=== PATIENT | male | born 1940 | race Caucasian/White ===

== ENCOUNTER 2021-09-09 09:20 | Emergency (ER) | payer MEDICARE, SELFPAY ==
[2021-09-09 09:21] VITALS: BP 137/80; PULSE 94; RESP 16; TEMP 36.1; O2SAT 93; BMI 31.5
--- NOTE | 2021-09-09 10:11 | CT_ITS ---
STUDY: CT ABDOMEN AND PELVIS WITH CONTRAST REASON FOR EXAM: Male, 81 years old. LLQ abdominal pain -- IV PO Contrast RADIATION DOSAGE (If Supplied By Facility): CTDIvol = ( 18.82 ) mGy, DLP = ( 1450.95 ) mGycm TECHNIQUE: Transaxial images were obtained from the dome of the diaphragm to the symphysis pubis with oral contrast. Oral and amp; IV Gastrografin and amp; 100mL Isovue-300 was administered. Sagittal and coronal images were reconstructed. Individualized dose optimization techniques were used for this CT. COMPARISON: None. FINDINGS: The visualized lung bases are unremarkable. Coronary artery calcification. There is a 1.1 cm cyst in the anterior aspect of the dome of the liver. A smaller cyst is also seen in the midportion of the right lobe. There are surgical clips in the gallbladder fossa consistent with a prior cholecystectomy. Normal spleen. Normal pancreas. Normal bilateral adrenal glands. Normal right kidney. Normal left kidney. Normal visualized stomach. Normal small intestine. There is diverticulosis, with thickening of the colon wall, and pericolonic inflammation changes consistent with acute diverticulitis. There is evidence of a 2.4 cm x 2.6 cm fat-containing density in the region of the ileocecal valve suggestive of a fatty ileocecal valve. The appendix is visualized and appears normal. There is scattered atherosclerotic calcification of the abdominal aorta, without a demonstrated aneurysm. Normal inferior vena cava. Normal retroperitoneum. Normal urinary bladder. There is enlargement of the prostate gland. This measures 7.3 cm x 5.9 cm. This causes indentation of the bladder base. Normal abdominal wall. There are diffuse degenerative changes of the visualized lumbar spine. Prior right total hip replacement. CT/Abdomen/Pelvis WITH Contrast IMPRESSION: Mild degree of sigmoid diverticulitis without complication. Findings suggestive fatty ileocecal valve. Marked enlargement of the prostate with indentation of the bladder base. Electronically Signed: Torey Malhotra MD at 13:29 EDT ,
--- NOTE | 2021-09-09 10:12 | EDS_ITS ---
HPI HPI - GI History of Present Illness Chief Complaint: Abd Pain Narrative Narrative: 81-year-old male presenting with 3 days of abdominal pain. He describes it as left lower quadrant pain. He has associated nausea intermittently. He denies vomiting. He does not have any constipation. No fever or chills. No urinary complaints. [facility] Medical History (Updated 09/09/21 @ 10:34 by Reese Gómez) Dementia Diabetes Hypertension Home Medications allopurinol 100 mg PO DAILY PRN PRN 07/13/16 [History Last Taken Unknown] lisinopril-hydrochlorothiazide [Zestoretic] 1 ea PO DAILY 07/13/16 [History Last Taken 07/26/16 07:00] metformin 500 mg PO BID 07/13/16 [History Last Taken Unknown] acetaminophen 1,000 mg PO Q8 #60 tab 01/12/17 [Rx Last Taken Unknown] aspirin 325 mg PO BID #30 tab 01/12/17 [Rx Last Taken Unknown] famotidine [Heartburn Prevention] 20 mg PO DAILY #42 tab 01/12/17 [Rx Last Taken Unknown] oxycodone 5 - 10 mg PO Q6H PRN PRN #60 tab 01/12/17 [Rx Last Taken Unknown] amoxicillin-pot clavulanate 1 tab PO BID #24 tab 09/09/21 [Rx Last Taken Unknown] Allergy/AdvReac Type Severity Reaction Status Date / Time cheese Allergy Anaphylaxis Verified 09/09/21 09:21 egg Allergy Anaphylaxis Verified 09/09/21 09:21 Fish Containing Products Allergy Anaphylaxis Verified 09/09/21 09:21 Family History no significant family his Surgical History no surgical history Social History Smoking Status: Former smoker [facility] ED Constitutional Constitutional ED: Denies chills or fever(s) ENT ENT ED: Denies rhinorrhea or sore throat Cardiovascular Cardiovascular: Denies chest pain or palpitations Respiratory/Chest Respiratory/Chest: Denies cough or dyspnea Gastrointestinal Gastrointestinal: Reports abdominal pain; Denies nausea or vomiting Genitourinary Genitourinary ED: Denies dysuria or hematuria Musculoskeletal Musculoskeletal: Denies arthralgias, back pain or myalgias Integumentary Denies abscess, Abrasions or rash Neurologic Neurologic: Denies headache(s) or weakness Psychiatric Psychiatric: Denies anxiety or depression EXAM Physical Exam Const Vital Signs: 09/09/21 09:21 Temperature 96.9 F L Temperature Source Temporal Pulse Rate 94 Respiratory Rate 16 Blood Pressure 137/80 H Blood Pressure Mean 99 Pulse Ox 93 Oxygen Delivery Method Room Air Positive well nourished General Appearance ED: NAD; Negative for pallor HEENT Reports moist mucous membranes normocephalic and atraumatic Eyes EOMs intact bilaterally General Eye ED: Negative for pale conjunctiva or scleral icterus Resp normal respiratory effort and clear to auscultation bilaterally Cardio regular rate and regular rhythm GI non-distended Palpation: soft and tender LLQ Neuro Sensorium / Orientation: alert, oriented to person, oriented to place and oriented to time Psych mental status grossly normal and thought process normal Skin General Skin Exam: Negative for jaundice or pallor Lesions: no lesions Rashes: no rashes MDM MDM MDM Narrative Medical decision making narrative: Patient presenting with left lower quadrant pain. He does report picking out on peanuts and other nuts. He also states he eats wipers with sesame seeds. Clinically with left lower quadrant pain he is concerned for diverticulitis. CBC and BMP are unremarkable. Urinalysis negative. Obtain a CT of the abdomen pelvis with IV contrast which shows a mild sigmoid diverticulitis. Patient improved with morphine and Zofran. Patient co unseled on findings and will be given Augmentin with first dose in the ED. He is counseled on foods to avoid at length. Patient given return precautions. Impression: 1. Abdominal pain 2. Acute sigmoid diverticulitis Lab Data Attestation: I reviewed the patient's lab results. Labs: Laboratory Results - last 24 hr 09/09/21 09/09/21 09/09/21 10:25 10:25 10:50 WBC 10.9 RBC 4.82 Hgb 14.4 Hct 43.7 MCV 90.7 MCH 29.9 MCHC 33.0 RDW Std Deviation 43.1 RDW Coeff of Hossein 13.0 Plt Count MPV 10.9 Immature Gran % (Auto) 0.400 Neut % (Auto) 70.9 H Lymph % (Auto) 20.0 [place] % (Auto) 7.2 Eos % (Auto) 1.0 Baso % (Auto) 0.5 Absolute Neuts (auto) 7.7 Absolute Lymphs (auto) 2.17 Nucleated RBC % 0 Platelet Estimate ADEQUATE Sodium 137 Potassium 4.4 Chloride 106 Carbon Dioxide 23.0 Anion Gap 8 BUN 17 Creatinine 1.09 Estim Creat Clear Calc 53.02 Est GFR (MDRD) Af Amer 83 Est GFR (MDRD) Non-Af 69 BUN/Creatinine Ratio 15.6 Glucose 139 H Calcium 9.0 Urine Color Yellow Urine Clarity Clear Urine pH 6.0 Ur Specific [place] 1.015 Urine Protein Negative Urine Glucose (UA) Normal Urine Ketones Negative Urine Occult Blood Negative Urine Nitrite Negative Urine Bilirubin Negative Urine Urobilinogen Normal Ur Leukocyte Esterase Negative Urine RBC 0 SEEN Urine WBC 0 SEEN Ur Squamous Epith Cells 0-5 SEEN Urine Bacteria 0 SEEN Urine Mucus 0 SEEN Radiography Diagnostic Testing: Clinical Impression(s) from Imaging Studies Abdomen/Pelvis CT 09/09/21 10:11 IMPRESSION: Mild degree of sigmoid diverticulitis without complication. Findings suggestive fatty ileocecal valve. Marked enlargement of the prostate with indentation of the bladder base. Electronically Signed: Torey Malhotra MD at 13:29 EDT , Discharge Plan Triage Chief Complaint: Abd Pain ED Provider: Miguel Ayon Dx/Rx/DC Orders Instructions: ED Diverticulitis Prescriptions: New amoxicillin-pot clavulanate 875-125 mg tablet 1 tab PO BID Qty: 24 RF: 0 No Action metformin 500 MG tablet 500 mg PO BID RF: 0 lisinopril-hydrochlorothiazide [Zestoretic] 1 EACH tablet 1 ea PO DAILY RF: 0 allopurinol 100 MG tablet 100 mg PO DAILY PRN PRN (Reason: GOUT) RF: 0 aspirin 325 MG tablet 325 mg PO BID Qty: 30 RF: 0 acetaminophen 500 MG tablet 1,000 mg PO Q8 Qty: 60 RF: 0 oxycodone 5 MG tablet 5 - 10 mg PO Q6H PRN PRN (Reason: Mod-Severe Pain (4-1010)) Qty: 60 RF: 0 famotidine [Heartburn Prevention] 20 MG tablet 20 mg PO DAILY Qty: 42 RF: 0 Primary Care Provider: Shavon Morejon Referrals: Shavon Morejon DO [Primary Care Provider] - Disposition Disposition: Home, Self Care
[2021-09-09 10:40] LABS: Absolute Lymphocyte Count 2.17 X10^3/uL (0.83-4.51); Absolute Neutrophil Count 7.7 X10^3/uL (2.0-7.7); Basophil# 0.05 X10^3/uL; Basophil% 0.5 % (0-1); Eosinophil# 0.11 X10^3/uL; Hematocrit 43.7 % (40-54); Hemoglobin 14.4 g/dL (13.0-16.5); Lymphocyte # 2.17 X10^3/ul (0.83-4.51); Mean Corpuscular Hgb 29.9 pg (27.0-32.0); Mean Corpuscular Volume 90.7 fL (80-94); Mean Platelet Vol. 10.9 fl (6.2-12.0); Monocyte# 0.78 X10^3/uL; Monocyte% 7.2 % (0-10); NRBC Flagged by Analyzer 0 % (0-5); Neutrophil # 7.71 X10^3/uL (2.7-7.7); Neutrophil % 70.9 % (47-70); POSITIVE COUNT YES; RBC Distribution Width SD 43.1 fl (35.1-43.9); Red Blood Count 4.82 M/mm3 (4.6-6.2); White Blood Count 10.9 K/mm3 (4.4-11.0)
[2021-09-09] MEDS: Ondansetron 4 MG/2 ML Vial IV (10:49)
[2021-09-09 10:52] LABS: Anion Gap 8 (5-15); BUN 17 mg/dL (7-18); BUN/Creat Ratio 15.6 RATIO (10-20); Chloride 106 mmol/L (98-107); Creatinine, Serum 1.09 mg/dL (0.70-1.30); EST Glomerular Filtration Rate 69 mL/min (>60); Est Glom Filt Rate - Afr Amer 83 mL/min (>60); Estimated Creatinine Clearance 53.02 ml/min; Glucose 139 mg/dL (74-106); Potassium 4.4 mmol/L (3.5-5.1); Sodium Level 137 mmol/L (136-145)
[2021-09-09 10:56] LABS: Bacteria 0 SEEN /hpf (None Seen); Mucous, Urine 0 SEEN /hpf (<or=2+); Red Blood Cells-Urine 0 SEEN /hpf (0-5); White Blood Cells 0 SEEN /hpf (0-5)
[2021-09-09 10:58] LABS: Color, Urine Yellow (Yellow); Glucose, Dipstick Normal (Normal); Ketone-Dipstick Negative (Negative); Leukocyte Esterase-Dipstick Negative /ul (Negative); Nitrite-Dipstick Negative (Negative); Occult Blood-Urine Negative /ul (Negative); Protein-Dipstick Negative (Negative); Specific Gravity, Urine 1.015 (1.002-1.030); Urine Bilirubin Dipstick Negative (Negative); Urine Clarity Clear (Clear); Urine Urobilinogen Normal (Normal)
[2021-09-09 11:09] LABS: Squamous Epithelial Cells - UA 0-5 SEEN /hpf (0-5)
[2021-09-09 11:12] LABS: Differential Indicated SCAN CRITERIA MET; Platelet Estimate ADEQUATE (ADEQ)
[2021-09-09] MEDS: Amox/Clavulanate 875 MG Tablet PO (13:52)
[2021-09-09 13:55] VITALS: RESP 18
== END 2021-09-09 13:57 | disposition home or self-care (01) ==
PROVIDERS: Emergency Provider Student in an Organized Health Care Education/Training Program; PCP Family Medicine; Visit Provider Student in an Organized Health Care Education/Training Program
DX: K57.32 Diverticulitis of large intestine without perforation or abscess without bleeding (principal); R10.32 Left lower quadrant pain; Z87.891 Personal history of nicotine dependence
CPT/HCPCS: 74177; 80048; 81001; 85025; 96374; 99283; A4216; J2405

== ENCOUNTER 2021-10-10 15:09 | Inpatient (IN) | payer MEDICARE, SELFPAY ==
[2021-10-10] VITALS (9 sets, daily range): BP systolic 141–175; BP diastolic 73–97; PULSE 80–93; RESP 14–21; TEMP 36.3–37.1; O2SAT 95–99; BMI 31.6; BMI 31.8
--- NOTE | 2021-10-10 15:30 | EKG12_ITS ---
Test Reason : PAIN/OTHER Blood Pressure : / mmHG Vent. Rate : 092 BPM Atrial Rate : 092 BPM P-R Int : 176 ms QRS Dur : 078 ms QT Int : 358 ms P-R-T Axes : 036 017 043 degrees QTc Int : 442 ms Normal sinus rhythm Normal ECG Confirmed by SHAY GOLDSMITH, GENNARO ([id number]), advertising editor FABY MEJIA ([id number]) on 10/12/2021 1:26:59 PM Referred By: NOEL Confirmed By:GENNARO DAY MD
--- NOTE | 2021-10-10 15:30 | CT_ITS ---
STUDY: CTA HEAD AND NECK WITH CONTRAST REASON FOR EXAM: Male, 81 years old. weakness left side, dementia, htn, dvt''s RADIATION DOSAGE (If Supplied By Facility): CTDIvol = ( 27.06 ) mGy, DLP = ( 1595.18 ) mGycm TECHNIQUE: CT angiography was performed with a multi-detector CT scanner. Data acquisition was obtained from the skull base through the vertex following intravenous administration of IV 100mL Isovue-370. MIP images were reconstructed from the axial data set. Post-processing of the angiographic images was performed, with multiplanar reformation and 3D reconstruction. Individualized dose optimization techniques were used for this CT. COMPARISON: No relevant priors. FINDINGS: There is no arterial occlusion, hemodynamically significant stenosis, aneurysm, or dissection in the head and neck. 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 Moderate atherosclerosis of the cavernous and supraclinoid segments of the bilateral intracranial ICAs is seen. There are small to moderate size mixed plaques at the bilateral carotid bulbs causing less than 40% luminal stenosis on both sides. No definite thrombosis is noted in the major dural sinuses and the neck pains. The bilateral globes are intact. Paranasal sinuses and mastoid air cells are clear. The bilateral parotid and submandibular glands are unremarkable. The airway is patent. The epiglottis is of normal contour and size. Ill-defined nodules are seen throughout the thyroid gland measuring up to 1.2 cm diameter. Upper lungs are clear. Multilevel cervicothoracic spondylosis is noted. CT/CTA Head AND Neck W/ Contrast IMPRESSION: No arterial occlusion or hemodynamically significant stenosis in the head and neck. Small thyroid nodules, amenable to further evaluation by ultrasound. Electronically Signed: Irving Garcia MD at 17:49 EDT ,
--- NOTE | 2021-10-10 15:33 | EDS_ITS ---
HPI History of Present Illness Chief Complaint: Other, Pain/Inj Detail of Chief Complaint: Left arm and leg pain Informant: patient Onset/Context/Timing Onset: Today Narrative Narrative: Patient reports waking this morning around 5:30 with difficulty moving his left hand and left leg along with pain. He states he was able to mow the yard yesterday without difficulty. He denies back pain. [facility] Medical History Dementia Diabetes Hypertension Home Medications allopurinol 100 mg PO DAILY PRN PRN 07/13/16 [History Last Taken Unknown] lisinopril-hydrochlorothiazide [Zestoretic] 1 ea PO DAILY 07/13/16 [History Last Taken 07/26/16 07:00] metformin 500 mg PO BID 07/13/16 [History Last Taken Unknown] acetaminophen 1,000 mg PO Q8 #60 tab 01/12/17 [Rx Last Taken Unknown] aspirin 325 mg PO BID #30 tab 01/12/17 [Rx Last Taken Unknown] famotidine [Heartburn Prevention] 20 mg PO DAILY #42 tab 01/12/17 [Rx Last Taken Unknown] oxycodone 5 - 10 mg PO Q6H PRN PRN #60 tab 01/12/17 [Rx Last Taken Unknown] amoxicillin-pot clavulanate 1 tab PO BID #24 tab 09/09/21 [Rx Last Taken Unknown] Allergy/AdvReac Type Severity Reaction Status Date / Time cheese Allergy Anaphylaxis Verified 10/10/21 15:14 egg Allergy Anaphylaxis Verified 10/10/21 15:14 Fish Containing Products Allergy Anaphylaxis Verified 10/10/21 15:14 Social History Smoking Status: Former smoker ROS ROS ED Constitutional Constitutional ED: Denies chills or fever(s) Eyes Eyes: Denies change in vision ENT ENT ED: Denies sore throat Cardiovascular Cardiovascular: Denies chest pain Respiratory/Chest Respiratory/Chest: Denies cough or dyspnea Gastrointestinal Gastrointestinal: Denies abdominal pain, diarrhea, nausea or vomiting Genitourinary Genitourinary ED: Denies dysuria Musculoskeletal Musculoskeletal: Denies back pain Integumentary Denies rash Neurologic Neurologic: Reports weakness; Denies headache(s) or paresthesias Psychiatric Psychiatric: Denies anxiety or depression Endocrine Endocrinology: Denies polydipsia or polyuria Allergic/Immunologic Allergic/Immunologic ED: Denies urticaria EXAM Physical Exam Const Vital Signs: 10/10/21 15:11 10/10/21 15:55 10/10/21 17:58 Temperature 97.3 F L Temperature Source Temporal Pulse Rate 93 85 Respiratory Rate 14 16 Respiratory Effort Normal Non-Labored Respiratory Pattern Normal Blood Pressure 158/75 H 153/80 H Blood Pressure Mean 102 104 Pulse Ox 99 Oxygen Delivery Method Room Air Positive well nourished and well developed General Appearance ED: well developed HEENT Reports moist mucous membranes Negative for trauma Eyes PERRL and EOMs intact bilaterally Neck supple Chest Wall inspection of chest normal and palpation of chest normal Resp normal respiratory effort and clear to auscultation bilaterally Cardio regular rate and regular rhythm GI non-tender Palpation: soft Extremity normal to inspection Neuro oriented x3 Neuro Narrative: Patient has no focal neurodeficits at this time. He is able to hold both arms up against gravity without drift. He is able to hold his left leg up off the floor to the count of 5. [id number] testing on the left is slightly slower than on the right. Sensation to light touch intact throughout. Sensorium / Orientation: alert Psych mental status grossly normal Skin no rashes or lesions noted MDM MDM MDM Narrative Medical decision making narrative: Lab work, EKG, urinalysis obtained. Patient sent for CTA of the head and neck. Chest x-ray ordered. Lab Data Attestation: I reviewed the patient's lab results. Labs: Laboratory Results - last 24 hr 10/10/21 10/10/21 10/10/21 15:45 15:45 15:45 WBC 11.5 H RBC 5.15 Hgb 15.2 Hct 47.2 MCV 91.7 MCH 29.5 MCHC 32.2 RDW Std Deviation 44.7 H RDW Coeff of Hossein 13.2 Plt Count 229 MPV 9.4 Immature Gran % (Auto) 0.300 Neut % (Auto) 73.3 H Lymph % (Auto) 19.9 [place] % (Auto) 5.5 Eos % (Auto) 0.7 Baso % (Auto) 0.3 Absolute Neuts (auto) 8.4 H Absolute Lymphs (auto) 2.29 Nucleated RBC % 0 PT 13.3 INR 1.0 APTT 30.9 Sodium 138 Potassium 4.0 Chloride 105 Carbon Dioxide 27.0 Anion Gap 6 BUN 12 Creatinine 1.10 Estim Creat Clear Calc 52.54 Est GFR (MDRD) Af Amer 82 Est GFR (MDRD) Non-Af 68 BUN/Creatinine Ratio 10.9 Glucose 164 H Calcium 9.5 Troponin I High Sens 4 Urine Color Urine Clarity Urine pH Ur Specific [place] Urine Protein Urine Glucose (UA) Urine Ketones Urine Occult Blood Urine Nitrite Urine Bilirubin Urine Urobilinogen Ur Leukocyte Esterase Urine RBC Urine WBC Ur Squamous Epith Cells Urine Bacteria Urine Mucus 10/10/21 16:05 WBC RBC Hgb Hct MCV MCH MCHC RDW Std Deviation RDW Coeff of Hossein Plt Count MPV Immature Gran % (Auto) Neut % (Auto) Lymph % (Auto) [place] % (Auto) Eos % (Auto) Baso % (Auto) Absolute Neuts (auto) Absolute Lymphs (auto) Nucleated RBC % PT INR APTT Sodium Potassium Chloride Carbon Dioxide Anion Gap BUN Creatinine Estim Creat Clear Calc Est GFR (MDRD) Af Amer Est GFR (MDRD) Non-Af BUN/Creatinine Ratio Glucose Calcium Troponin I High Sens Urine Color Yellow Urine Clarity Clear Urine pH 5.0 Ur Specific [place] 1.025 Urine Protein Negative Urine Glucose (UA) Normal Urine Ketones Negative Urine Occult Blood 10 H Urine Nitrite Negative Urine Bilirubin Negative Urine Urobilinogen Normal Ur Leukocyte Esterase Negative Urine RBC 0 SEEN Urine WBC 0 SEEN Ur Squamous Epith Cells 0 SEEN Urine Bacteria 0 SEEN Urine Mucus 0 SEEN Radiography Chest X-Ray - ED: 1 View, Read by ED Physician and Chronic Changes Diagnostic Testing: Clinical Impression(s) from Imaging Studies Head/Neck CTA 10/10/21 15:30 IMPRESSION: No arterial occlusion or hemodynamically significant stenosis in the head and neck. Small thyroid nodules, amenable to further evaluation by ultrasound. Electronically Signed: Irving Garcia MD at 17:49 EDT , Chest X-Ray 10/10/21 16:20 IMPRESSION: No acute cardiopulmonary process. Electronically Signed: Irving Garcia MD at 17:25 EDT , EKG Initial EKG: Attestation: I personally reviewed and interpreted this EKG as follows: Interpretation: Sinus Rhythm (Sinus at 92 with no acute ischemia.) Treatment and Re-Evaluation Narrative: On repeat evaluation patient resting comfortably. He still feels that his left side is weak. now states that he fell twice this week, 1 of those episodes was this morning. She states he has been complaining of left- sided weakness that seems to be worse when he first wakes up in the morning. He is having more trouble getting around the house. I advised the best course of action will be to observe him overnight and obtain a MRI in the morning to c ompletely rule out stroke. I will speak with the hospitalist. Discharge Plan Triage Chief Complaint: Other, Pain/Inj ED Provider: Alanis Borjas Dx/Rx/DC Orders Clinical Impression: Weakness Prescriptions: No Action metformin 500 MG tablet 500 mg PO BID RF: 0 lisinopril-hydrochlorothiazide [Zestoretic] 1 EACH tablet 1 ea PO DAILY RF: 0 allopurinol 100 MG tablet 100 mg PO DAILY PRN PRN (Reason: GOUT) RF: 0 aspirin 325 MG tablet 325 mg PO BID Qty: 30 RF: 0 acetaminophen 500 MG tablet 1,000 mg PO Q8 Qty: 60 RF: 0 oxycodone 5 MG tablet 5 - 10 mg PO Q6H PRN PRN (Reason: Mod-Severe Pain (4-10/10)) Qty: 60 RF: 0 famotidine [Heartburn Prevention] 20 MG tablet 20 mg PO DAILY Qty: 42 RF: 0 amoxicillin-pot clavulanate 875-125 mg tablet 1 tab PO BID Qty: 24 RF: 0 Primary Care Provider: Shavon Morejon Referrals: Shavon Morejon DO [Primary Care Provider] - Disposition Disposition: Acute Care Hospital [facility]
[2021-10-10 15:50] LABS: Absolute Lymphocyte Count 2.29 X10^3/uL (0.83-4.51); Absolute Neutrophil Count 8.4 X10^3/uL (2.0-7.7); Basophil# 0.04 X10^3/uL; Basophil% 0.3 % (0-1); Eosinophil# 0.08 X10^3/uL; Eosinophils% 0.7 % (0-5); Hematocrit 47.2 % (40-54); Hemoglobin 15.2 g/dL (13.0-16.5); Lymphocyte # 2.29 X10^3/ul (0.83-4.51); Lymphocyte % 19.9 % (19-41); Mean Corp Hgb Conc 32.2 g/dL (32-36); Mean Corpuscular Hgb 29.5 pg (27.0-32.0); Mean Corpuscular Volume 91.7 fL (80-94); Mean Platelet Vol. 9.4 fl (6.2-12.0); Monocyte# 0.63 X10^3/uL; Monocyte% 5.5 % (0-10); NRBC Flagged by Analyzer 0 % (0-5); Neutrophil # 8.42 X10^3/uL (2.7-7.7); Neutrophil % 73.3 % (47-70); Platelet Count 229 K/mm3 (150-450); RBC Distribution Width CV 13.2 % (11.6-14.6); RBC Distribution Width SD 44.7 fl (35.1-43.9); Red Blood Count 5.15 M/mm3 (4.6-6.2); White Blood Count 11.5 K/mm3 (4.4-11.0)
[2021-10-10 16:02] LABS: Partial Thromboplast Time 30.9 Seconds (24.1-36.2); Prothrombin Time (Protime)PT. 13.3 SECONDS (11.7-14.9)
[2021-10-10 16:12] LABS: Anion Gap 6 (5-15); BUN 12 mg/dL (7-18); BUN/Creat Ratio 10.9 RATIO (10-20); Calcium,Total 9.5 mg/dL (8.5-10.1); Chloride 105 mmol/L (98-107); EST Glomerular Filtration Rate 68 mL/min (>60); Est Glom Filt Rate - Afr Amer 82 mL/min (>60); Estimated Creatinine Clearance 52.54 ml/min; Glucose 164 mg/dL (74-106); Sodium Level 138 mmol/L (136-145); Troponin-I HS 4 pg/mL (3.0-78.0)
[2021-10-10 16:14] LABS: Bacteria 0 SEEN /hpf (None Seen); Mucous, Urine 0 SEEN /hpf (<or=2+); Red Blood Cells-Urine 0 SEEN /hpf (0-5); Squamous Epithelial Cells - UA 0 SEEN /hpf (0-5); White Blood Cells 0 SEEN /hpf (0-5)
--- NOTE | 2021-10-10 16:20 | RAD_ITS ---
STUDY: X-RAY CHEST REASON FOR EXAM: Male, 81 years old. sob TECHNIQUE: 1 view COMPARISON: None. FINDINGS: Cardiomediastinal silhouette is unremarkable. Costophrenic angles are sharp. Lungs are clear. The trachea is midline. There is no pneumothorax. The bones are grossly intact. RAD/Chest 1 View (Portable) IMPRESSION: No acute cardiopulmonary process. Electronically Signed: Irving Garcia MD at 17:25 EDT ,
[2021-10-10 16:25] LABS: Color, Urine Yellow (Yellow); Glucose, Dipstick Normal (Normal); Ketone-Dipstick Negative (Negative); Leukocyte Esterase-Dipstick Negative /ul (Negative); Nitrite-Dipstick Negative (Negative); Occult Blood-Urine 10 /ul (Negative); Protein-Dipstick Negative (Negative); Specific Gravity, Urine 1.025 (1.002-1.030); Urine Bilirubin Dipstick Negative (Negative); Urine Clarity Clear (Clear); Urine Urobilinogen Normal (Normal)
--- NOTE | 2021-10-10 19:03 | HP.PCM.HOS_ITS ---
HPI - General General Date of Admission: 10/10/21 Date of Service: 10/10/21 Chief Complaint: L sided weakness HPI Narrative The patient is an 81 y/o M w/ PMHx: Dementia unclear type with unclear behavioral disturbance history, HTN, Diabetes mellitus type II, Obesity who presents to the [facility] ED on 10/10/21 with history of awakening this morning approximately 5:30 AM with some difficulty specifically getting out of bed and noted that he felt very weak and had to attempt even walk to get up in addition to reported difficulty moving his left hand and left leg with associated pain noting that the day prior he had no issue and was able to mow the yard and given it was not resolving prompted ED evaluation. He also noted that after he was finally able to get out of bed his had recently walks the floors and he slipped and was unable to get off the floor requiring him to scoot to the edge of the steps and have his pull them up. He also notes that he had about a week of right lower extremity mild discomfort and swelling compared to the left. 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 Work-up in the ED included T97.3, heart rate 93, BP 158/75, respiratory rate 14, 99% on room air, CBC with WC 11.5, hemoglobin 15.2, platelet 229 with left shift, unremarkable coags, BMP with glucose 164 otherwise unremarkable, troponin 4, urinalysis with evidence of dehydration with elevated specific gravity 1.025 otherwise no obvious evidence of UTI, chest x-ray with no acute cardiopulmonary findings, CT of the head and CT of the head and neck with no arterial occlusion or hemodynamically significant stenosis in the head and neck with small to moderate size mixed plaques at bilateral carotid bulbs causing less than 40% luminal stenosis on both sides in addition to ill-defined nodules seen throughout the thyroid gland measuring up to 1.2 cm in diameter. [facility] Medical History (Updated 10/10/21 @ 20:[address] Carina Doe MD) Dementia Diabetes mellitus, type 2 Former tobacco use GERD (gastroesophageal reflux disease) Gout Hypertension Home Medications lisinopril-hydrochlorothiazide [Zestoretic] 1 ea PO BID 07/13/16 [History Last Taken 07/26/16 07:00] metformin 1,000 mg PO BID 07/13/16 [History Last Taken Unknown] metformin 500 mg PO QHS 10/10/21 [History Last Taken Unknown] Allergy/AdvReac Type Severity Reaction Status Date / Time cheese Allergy Anaphylaxis Verified 10/10/21 15:14 egg Allergy Anaphylaxis Verified 10/10/21 15:14 Fish Containing Products Allergy Anaphylaxis Verified 10/10/21 15:14 Family History other other (Patient's mother during his and his father at age 89 with no health histories including heart disease, diabetes, cancer.) Surgical History (Updated 10/10/21 @ 20:[address] 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 Carina Doe MD) household members: spouse housing: house Smoking Status: Former smoker how long ago did patient quit smoking: Quit remotely in the 1960s, smoked a pipe. alcohol intake: never substance use type: does not use ROS ROS Narrative Admission Review of Systems: CONSTITUTIONAL: No weight loss, fever, chills, + weakness or fatigue. HEENT: Eyes: No visual loss, blurred vision, double vision or yellow sclerae. Ears, Nose, Throat: No hearing loss, sneezing, congestion, runny nose or sore throat. SKIN: + Abrasions. CARDIOVASCULAR: + RLE edema. No chest pain, chest pressure or chest discomfort, palpitations, orthopnea, syncopal events. RESPIRATORY: No shortness of breath, cough or sputum, wheezing, hemoptysis. GASTROINTESTINAL: No anorexia, nausea, vomiting or diarrhea, abdominal pain, melena, BRBPR. GENITOURINARY: No dysuria, frequency, urgency or retention. NEUROLOGICAL: + L side weakness, No headache, dizziness, syncope, paralysis, ataxia, numbness or tingling in the extremities, no loss of bowel or bladder, seizure. MUSCULOSKELETAL: + muscle, back pain, joint pain or stiffness. HEMATOLOGIC: No anemia, bleeding or bruising. LYMPHATICS: No enlarged nodes. No history of splenectomy. PSYCHIATRIC: No history of depression or anxiety. ENDOCRINOLOGIC: No reports of sweating, cold or heat intolerance. No polyuria or polydipsia. ALLERGIES: No history of asthma, hives, eczema or rhinitis. Vital Signs Vital Signs Vital Signs: 10/10/21 15:11 10/10/21 15:55 10/10/21 17:58 Temperature 97.3 F L Temperature Source Temporal Pulse Rate 93 85 Respiratory Rate 14 16 Respiratory Effort Normal Non-Labored Respiratory Pattern Normal Blood Pressure 158/75 H 153/80 H Blood Pressure Mean 102 104 Pulse Ox 99 Oxygen Delivery Method Room Air Weight Weight: 220 lb 7.396 oz Body Mass Index (BMI) 31.6 Physical Exam Narrative Physical Examination: General: Awake, alert, oriented x 3 including to self, place and recent events, does have reported underlying dementia, remains cooperative, seated upright in the ED bed in no apparent distress, does report RLE discomfort/swelling and lumbar back pain with fall today also. Skin: Normal color, normal turgor, no icterus, no cyanosis except occasional staged ecchymoses and occasional abrasion. HEENT: AT/NC, EOMI, PERRLA, MMM, no carotid bruits or JVD noted. Lungs: Diminished, greater bases, appropriate effort, no rales, ronchi or wheezing. Heart: Currently regular rate and rhythm; no gallop, rub audible. Abdomen: Soft, obese, NTTP, ND, distant normal BS, no obvious evidence of HSM. Extremities: No cyanosis, no clubbing, right lower extremity with mild pedal to distal villanueva 1-2+ edema, increased compared to the left lower extremity, uncomfortable with palpation. Neurological: Patient awake, alert, oriented as noted, cognitive function appears intact but patient does of note have underlying dementia with unclear behavioral disturbance history; pupils equally reactive to light and accommodation, cranial nerves II-XII grossly normal, moving all 4 extremities, no focal deficits, [id number] and djve-bw-[id number] mildly slow but appropriate, equivocal Babinski, strength moderately global decreased but could certainly be associated with recent fall and age. Psychiatric: Affect appears normal, no acute evidence of depressive or anxiety feelings. Results Lab / Micro Data Result Diagrams: 10/10/21 15:45 10/10/21 15:45 Labs: Laboratory Results - last 24 hr 10/10/21 15:45: WBC 11.5 H, RBC 5.15, Hgb 15.2, Hct 47.2, MCV 91.7, MCH 29.5, MCHC 32.2, RDW Std Deviation 44.7 H, RDW Coeff of Hossein 13.2, Plt Count 229, MPV 9.4, Immature Gran % (Auto) 0.300, Neut % (Auto) 73.3 H, Lymph % (Auto) 19.9, [place] % (Auto) 5.5, Eos % (Auto) 0.7, Baso % (Auto) 0.3, Absolute Neuts (auto) 8.4 H, Absolute Lymphs (auto) 2.29, Nucleated RBC % 0 10/10/21 15:45: PT 13.3, INR 1.0, APTT 30.9 10/10/21 15:45: Sodium 138, Potassium 4.0, Chloride 105, Carbon Dioxide 27.0, Anion Gap 6, BUN 12, Creatinine 1.10, Estim Creat Clear Calc 52.54, Est GFR (MDRD) Af Amer 82, Est GFR (MDRD) Non-Af 68, BUN/Creatinine Ratio 10.9, Glucose 164 H, Calcium 9.5, Troponin I High Sens 4 10/10/21 16:05: Urine Color Yellow, Urine Clarity Clear, Urine pH 5.0, Ur Speci fic Perley 1.025, Urine Protein Negative, Urine Glucose (UA) Normal, Urine Ketones Negative, Urine Occult Blood 10 H, Urine Nitrite Negative, Urine Bilirubin Negative, Urine Urobilinogen Normal, Ur Leukocyte Esterase Negative, Urine RBC 0 SEEN, Urine WBC 0 SEEN, Ur Squamous Epith Cells 0 SEEN, Urine Bacteria 0 SEEN, Urine Mucus 0 SEEN Radiology Impression Head/Neck CTA 10/10/21 15:30 IMPRESSION: No arterial occlusion or hemodynamically significant stenosis in the head and neck. Small thyroid nodules, amenable to further evaluation by ultrasound. Electronically Signed: Irving Garcia MD at 17:49 EDT Reading Location ID and State: [facility] / [place] Tel , Service support , Chest X-Ray 10/10/21 16:20 IMPRESSION: No acute cardiopulmonary process. Electronically Signed: Irving Garcia MD at 17:25 EDT Reading Location ID and State: [facility] / [place] Tel , Service support , Assessment & Plan Assessment/Plan (1) TIA (transient ischemic attack): PLAN: The patient is an 81 y/o M w/ PMHx: Dementia unclear type with unclear behavioral disturbance history, HTN, Diabetes mellitus type II, Obesity who presents to the [facility] ED on 10/10/21 with history of awakening this morning approximately 5:30 AM with some difficulty moving his left hand and left leg with associated pain noting that the day prior he had no issue and was able to mow the yard and given it was not resolving prompted ED evaluation. #1. Left-sided hemiplegia concerning for CVA: Will admit to PCU, will obtain MRI Brain, ECHO, PT/OT/Speech/Nutrition evaluation per protocol. Will consult Neurology for evaluation once further evaluation and imaging obtained of. Will allow permissive HTN, de-escalate aspirin 325 mg to asa 81 mg and add Plavix 75 mg, add moderate dose statin given age w/ AM FLP, fall precautions. Magnesium, TSH, free T4, FLP, hemoglobin A1c requested. Will discuss potential for taking plavix, statin given allergy history and if patient has attempted these agents or notes he would issue will d/c. #2. Right lower extremity discomfort, edema: Duplex ultrasound will be ordered. #3. Recent mechanical fall with lumbar back pain: We will obtain plain film of the lumbar spine, therapies orders as noted above, fall precautions. #4. Incidental thyroid nodules: Ill-defined nodules seen throughout the thyroid gland measuring up to 1.2 cm, thyroid ultrasound, TSH and free T4 requested. #5. Hypertension: We will continue permissive hypertension pending further work-up as noted above #1. As needed agents per stroke protocol #6. Hyperlipidemia: We will place on moderate dose statin given age, FLP in a.m. #7. Diabetes mellitus type II: Hold oral home regimen, hemoglobin A1c requested, ADA diet, accu checks w/ ISS. #8. Dementia unclear type with unclear behavioral disturbance history: Complicates presentation, no new medications, maintain on fall and aspiration cautions, therapies consulted as well as case management as noted. #9. GERD: We will maintain on famotidine. #10. Gout: We will continue patient on allopurinol regimen. #11. DVT prophylaxis: SCDs, Lovenox. #12. CODE status: Patient JUSTEN is his and living will is currently in. Discussed CODE status at length including difference between FULL code, DNR-CCA and DNR-CC status. Following discussions about the differences in these status, requested DNR-CCA, no intubation status. Advanced Care Planning Face to Face Time: 16 minutes. Charges/Coding Visit Charges OBSV E&M: 12521 Initial observation care L3 Procedures Hospitalists Procedures: 97694 Advncd Care Plan 30 Min
--- NOTE | 2021-10-10 20:11 | VDLE_ITS ---
Reason For Study: pain RIGHT GSV is normal. CFV is compressible, spontaneous, phasic, competent and demonstrates normal augmentation. FV is compressible, spontaneous, phasic, competent and demonstrates normal augmentation. POP V is compressible, spontaneous, phasic, competent and demonstrates normal augmentation. T/P Trunk is compressible. PTV is compressible. RT PerV is compressible. Procedure This is a venous duplex using B-mode, color flow and spectral Doppler. Exam performed portable in patient room. The exam was abbreviated due to the COVID 19 protocol. The exam was diagnostic. A preliminary report was called and/or faxed to the pt's RN. VL/Venous Duplex US, Unilateral Interpretation Summary There is no evidence of right lower extremity deep vein thrombosis. Right great saphenous vein appears patent and compressible segmentally. Abbreviated COVID-19 protocol util ized Ordering Physician: Carina Doe Performed By: Jose Rojas RVT
--- NOTE | 2021-10-10 20:26 | MRI_ITS ---
We are attempting to reach an attending provider to discuss findings. An addendum with communication details will be sent when the communication is complete. STUDY: MRI BRAIN WITHOUT CONTRAST REASON FOR EXAM: Male, 81 years old. CVA TECHNIQUE: Standardized multiplanar fat and water weighted pulse sequences were obtained. COMPARISON: None. FINDINGS: There is moderate cerebral atrophy with widening of the extra-axial spaces and ventricular dilatation. There are a limited number of small white matter hyperintensities, distributed throughout the deep white matter tracts of the cerebral hemispheres, consistent with mild chronic white matter ischemic changes. 1 cm hyperintensity of the right side of the anival demonstrates faint restricted diffusion consistent with a subacute infarct. Normal T2* images of the brain without demonstrated susceptibility artifact. There is no demonstrated hemosiderin stain. Normal bilateral basal ganglia. Normal thalami. There is no extra-axial fluid accumulation. Normal flow voids within the major intracranial circulation suggesting patency by spin echo criteria. Normal sella turcica, pituitary gland, infundibular stalk, optic chiasm and hypothalamus. Normal tectal plate and pineal gland. Normal midbrain, anival and medulla. Normal cerebellum. Normal basal cisterns. Normal bilateral temporal bones. Normal bilateral internal auditory canals. No demonstrated orbital abnormality, within the constraints of a routine brain study. Normal visualized paranasal sinuses. Normal calvarium and skull base. Normal visualized soft tissue structures. Normal visualized upper cervical spine. 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 Electronically Signed: Khoa Tejeda MD at 13:26 EDT ,
--- NOTE | 2021-10-10 20:28 | ECHOCS_ITS ---
Reason For Study: TIA/CVA Procedure This was a 2D Doppler, Color Flow transthoracic echocardiogram. The study was technically difficult. Contrast injection was performed. Bubble study performed. Exam performed portable in patient room. Left Ventricle Normal LV size. Mild concentric left ventricular hypertrophy. Left ventricular systolic function is normal. The estimated ejection fraction is 60 %. Stage 1 diastolic dysfunction. No regional wall motion abnormalities noted. Right Ventricle Normal RV size. Normal systolic function. Atria Normal left atrium. Normal right atrium. Bubble contrast study negative for right to left interatrial shunt. Mitral Valve Normal mitral valve. Tricuspid Valve Normal tricuspid valve. Aortic Valve Trisinus/trileaflet aortic valve. Pulmonic Valve Normal pulmonic valve. Great Vessels Normal aortic root. The pulmonary artery is normal size. Normal inferior vena cava. Pericardium/Pleural No pericardial effusion. Medication Diluted definity 3ml given slow IV push to enhance endocardial definition. Performed a rapid injection of agitated mix of 9 cc saline and 1cc air to assess for atrial septal defect. MMode/2D Measurements & Calculations LVIDd: 3.4 cm IVSd: 1.3 cm LA dimension: 3.4 cm LVIDs: 1.9 cm LVPWd: 1.5 cm FS: 45.3 % LAV(MOD-sp4): 61.4 ml LA A4 area: 21.7 cm2 RA A4 area: 15.4 cm2 Time Measurements MV dec time: 0.19 sec Doppler Measurements & Calculations MV E max paul: 62.5 cm/sec Lat Peak E' Paul: 7.6 cm/sec Med Peak E' Paul: 7.0 cm/sec MV A max paul: 104.9 cm/sec E/E' lat: 8.2 E/E' med: 8.9 MV E/A: 0.60 MV V2 max: 110.2 cm/sec MV P1/2t max paul: 69.5 cm/sec Ao V2 max: 104.0 cm/sec MV max P.9 mmHg MV P1/2t: 74.0 msec Ao max P.3 mmHg MV V2 mean: 60.4 cm/sec MV dec slope: 274.8 cm/sec2 MV mean P.7 mmHg MV V2 VTI: 16.1 cm MVA(P1/2t): 3.0 cm2 LV V1 max: 101.5 cm/sec PA V2 max: 140.6 cm/sec LV V1 max P.1 mmHg ECHO/Echo Complete W/ Contrast Interpretation Summary Normal LV size. Left ventricular systolic function is normal. The estimated ejection fraction is 60 %. Stage 1 diastolic dysfunction. Mild concentric left ventricular hypertrophy. Bubble contrast study negative for right to left interatrial shunt. Contrast injection was performed. Ordering Physician: Carina Doe Referring Physician: Shavon Morejon Performed By: Adam Cee RCS
[2021-10-10 20:50] LABS: Magnesium 1.9 mg/dL (1.6-2.6)
[2021-10-10] MEDS: 0.9% Normal Saline 1,000 ML 100 ML IV (22:00)
[2021-10-10] MEDS: 0.9% Saline Lock 10 ML Syringe IV (22:00)
[2021-10-10] MEDS: Atorvastatin Calcium 20 MG Tablet PO (22:02)
[2021-10-10 22:10] LABS: Bedside Glucose 111 mg/dL (74-106)
--- NOTE | 2021-10-10 22:20 | RAD_ITS ---
EXAM: XR LUMBOSACRAL SPINE, 2 OR 3 VIEWS CLINICAL INDICATION: Fall, lumbar pain TECHNIQUE: Frontal and lateral views of the lumbar spine and sacrum. This report was created using [employer] report generation technology. COMPARISON: None. FINDINGS: VERTEBRAE: Severe spondylitic changes with vacuum phenomenon throughout the lumbar spine. Severe bilateral multilevel vertebral facet arthropathy. Preserved vertebral body height. No fracture. No spondylolisthesis. Preservation of the normal lumbar lordosis. DISC SPACES: No acute findings. Disc spaces are maintained. GASTROINTESTINAL TRACT: Unremarkable as visualized. Included bowel gas pattern is non-obstructive. OTHER FINDINGS: Right hip arthroplasty. RAD/Lumbar Spine 2 or 3 Views IMPRESSION: Severe degenerative changes. No definite fracture identified. Electronically Signed: Kadeem Weir MD at 0:29 EDT ,
[2021-10-11] VITALS (11 sets, daily range): BP systolic 134–160; BP diastolic 69–90; PULSE 76–88; RESP 16–18; TEMP 36.5–37; O2SAT 94–96; BMI 31.8
--- NOTE | 2021-10-11 05:55 | US_ITS ---
STUDY: THYROID ULTRASOUND REASON FOR EXAM: Male, 81 years old. Thyroid nodules. TECHNIQUE: Ultrasound evaluation of the thyroid was performed with real-time and static larkin-scale imaging. COMPARISON: None. FINDINGS: RIGHT LOBE: The right lobe of the thyroid gland measures 4.1 cm x 2.3 cm x 1.8 cm. There is a homogeneous echotexture. There is a 1.2 cm x 1 cm x 0.9 cm hypoechoic solid nodule with increased perinodular vascularity in the posterior inferior aspect of the right lobe. There is also evidence of a 7 mm x 9 mm x 8 mm hypoechoic solid nodule in the midportion as well as a 4 mm x 4 mm x 4 mm hypoechoic nodule in the lower pole. LEFT LOBE: The left lobe of the thyroid gland measures 4.3 cm x 2.7 cm x 2.2 cm. There is a homogeneous echotexture. Multiple hypoechoic nodules are seen. The largest measures 1 cm x 1 cm x 0.6 cm in the upper pole. A similar appearing hypoechoic solid nodule is also seen in the mid pole measuring 1 cm x 0.9 cm x 0.8 cm. ISTHMUS: The isthmus measures 3 mm. The regional lymph nodes are normal. US/Thyroid IMPRESSION: Multiple bilateral thyroid nodules as described. The dominant nodule is seen in the right lobe measuring 1.2 cm x 1 cm x 0.9 cm. Correlation with nuclear medicine thyroid uptake and scan recommended. Biopsy may be indicated. Electronically Signed: Torey Malhotra MD at 9:02 EDT ,
[2021-10-11 06:07] LABS: Absolute Lymphocyte Count 2.89 X10^3/uL (0.83-4.51); Absolute Neutrophil Count 8.2 X10^3/uL (2.0-7.7); Basophil# 0.04 X10^3/uL; Basophil% 0.3 % (0-1); Eosinophil# 0.17 X10^3/uL; Eosinophils% 1.4 % (0-5); Hematocrit 42.2 % (40-54); Hemoglobin 13.7 g/dL (13.0-16.5); Lymphocyte # 2.89 X10^3/ul (0.83-4.51); Lymphocyte % 23.6 % (19-41); Mean Corp Hgb Conc 32.5 g/dL (32-36); Mean Corpuscular Hgb 29.8 pg (27.0-32.0); Mean Corpuscular Volume 91.9 fL (80-94); Mean Platelet Vol. 10.3 fl (6.2-12.0); Monocyte% 7.3 % (0-10); NRBC Flagged by Analyzer 0 % (0-5); Neutrophil # 8.21 X10^3/uL (2.7-7.7); Neutrophil % 67.1 % (47-70); Platelet Count 203 K/mm3 (150-450); RBC Distribution Width CV 13.1 % (11.6-14.6); RBC Distribution Width SD 43.8 fl (35.1-43.9); Red Blood Count 4.59 M/mm3 (4.6-6.2); White Blood Count 12.3 K/mm3 (4.4-11.0)
[2021-10-11 06:45] LABS: ALB/GLOB Ratio 0.9 RATIO (0.9-2.4); AST(SGOT) 16 U/L (15-37); Alanine Aminotransfer ALT/SGPT 20 U/L (16-61); Alkaline Phosphatase 56 U/L (45-117); Anion Gap 5 (5-15); BUN 13 mg/dL (7-18); BUN/Creat Ratio 14.6 RATIO (10-20); Calcium,Total 8.6 mg/dL (8.5-10.1); Chloride 108 mmol/L (98-107); Cholesterol 134 mg/dL (200); Creatinine, Serum 0.89 mg/dL (0.70-1.30); EST Glomerular Filtration Rate 87 mL/min (>60); Est Glom Filt Rate - Afr Amer 105 mL/min (>60); Estimated Creatinine Clearance 64.93 ml/min; Globulin 3.5 g/dL (2.2-4.2); Glucose 132 mg/dL (74-106); High Density Lipoprotein 31 mg/dL; Potassium 4.2 mmol/L (3.5-5.1); Protein, Total 6.5 g/dL (6.4-8.2); Sodium Level 138 mmol/L (136-145); T4 Free Direct 1.09 ng/dL (0.76-1.46); Thyroid Stim Hormone (TSH) 1.27 uIU/mL (0.358-3.74); Triglycerides 256 mg/dL; Very Low Density Lipoprotein 51 mg/dL (5-40)
[2021-10-11 07:05] LABS: Bedside Glucose 147 mg/dL (74-106)
[2021-10-11 07:27] LABS: Hemoglobin A1c 6.4 % (3.8-5.6)
[2021-10-11] MEDS: Aspirin 81 MG TAB.CHEW PO (10:31)
[2021-10-11] MEDS: Clopidogrel Bisulfate 75 MG Tablet PO (10:31)
[2021-10-11] MEDS: Famotidine 20 MG Tablet PO (10:31)
[2021-10-11] MEDS: Enoxaparin 40 MG/0.4 ML Syringe SC (10:33)
--- NOTE | 2021-10-11 11:00 | PCM.PN.HOSP ---
Documented by User: Zaira Guadalupe TELECOMMUNICATIONS SUPPORT, TELECOMMUNICATIONS SUPPORT-C 10/11/21 13:37 Subjective Subjective Patient seen and examined. Reports generalized weakness and states he feels wobbly when he walks. Reports he feels more weak on his left side which is worse in the morning. Denies vision or speech changes. Objective Data Objective Data Vital Signs: Vital Signs Temp Pulse Resp BP Pulse Ox 97.9 F 87 18 141/72 H 95 10/11/21 07:30 10/11/21 07:30 10/11/21 07:30 10/11/21 07:30 10/11/21 08:41 Oxygen Delivery Method Room Air Weight: 221 lb 5.506 oz Body Mass Index (BMI) 31.8 Intake & Output: Intake and Output for Last 24 Hours 10/09/21 10/10/21 10/11/21 23:59 23:59 23:59 Intake Total 500 / 500 Output Total 500 / 500 Balance 0 / 0 Lab / Micro Data Result Diagrams: 10/11/21 05:13 10/11/21 05:13 Labs: Laboratory Results - last 24 hr 10/10/21 15:45: WBC 11.5 H, RBC 5.15, Hgb 15.2, Hct 47.2, MCV 91.7, MCH 29.5, MCHC 32.2, RDW Std Deviation 44.7 H, RDW Coeff of Hossein 13.2, Plt Count 229, MPV 9.4, Immature Gran % (Auto) 0.300, Neut % (Auto) 73.3 H, Lymph % (Auto) 19.9, [place] % (Auto) 5.5, Eos % (Auto) 0.7, Baso % (Auto) 0.3, Absolute Neuts (auto) 8.4 H, Absolute Lymphs (auto) 2.29, Nucleated RBC % 0 10/10/21 15:45: PT 13.3, INR 1.0, APTT 30.9 10/10/21 15:45: Sodium 138, Potassium 4.0, Chloride 105, Carbon Dioxide 27.0, Anion Gap 6, BUN 12, Creatinine 1.10, Estim Creat Clear Calc 52.54, Est GFR (MDRD) Af Amer 82, Est GFR (MDRD) Non-Af 68, BUN/Creatinine Ratio 10.9, Glucose 164 H, Calcium 9.5, Troponin I High Sens 4 10/10/21 15:45: Magnesium 1.9 10/10/21 16:05: Urine Color Yellow, Urine Clarity Clear, Urine pH 5.0, Ur Specific [place] 1.025, Urine Protein Negative, Urine Glucose (UA) Normal, Urine Ketones Negative, Urine Occult Blood 10 H, Urine Nitrite Negative, Urine Bilirubin Negative, Urine Urobilinogen Normal, Ur Leukocyte Esterase Negative, Urine RBC 0 SEEN, Urine WBC 0 SEEN, Ur Squamous Epith Cells 0 SEEN, Urine Bacteria 0 SEEN, Urine Mucus 0 SEEN 10/10/21 21:40: POC Glucose 111 H 10/11/21 05:13: WBC 12.3 H, RBC 4.59 L, Hgb 13.7, Hct 42.2, MCV 91.9, MCH 29.8, MCHC 32.5, RDW Std Deviation 43.8, RDW Coeff of Hossein 13.1, Plt Count 203, MPV 10.3, Immature Gran % (Auto) 0.300, Neut % (Auto) 67.1, Lymph % (Auto) 23.6, [place] % (Auto) 7.3, Eos % (Auto) 1.4, Baso % (Auto) 0.3, Absolute Neuts (auto) 8.2 H, Absolute Lymphs (auto) 2.89, Nucleated RBC % 0 10/11/21 05:13: Sodium 138, Potassium 4.2, Chloride 108 H, Carbon Dioxide 25.0, Anion Gap 5, BUN 13, Creatinine 0.89, Estim Creat Clear Calc 64.93, Est GFR (MDRD) Af Amer 105, Est GFR (MDRD) Non-Af 87, BUN/Creatinine Ratio 14.6, Glucose 132 H, Calcium 8.6, Total Bilirubin 0.50, AST 16, ALT 20, Alkaline Phosphatase 56, Total Protein 6.5, Albumin 3.0 L, Globulin 3.5, Albumin/Globulin Ratio 0.9, Triglycerides 256 H, Cholesterol 134, LDL Cholesterol 52, VLDL Cholesterol 51 H, HDL Cholesterol 31 L, TSH 1.27, Free T4 1.09 10/11/21 05:13: Hemoglobin A1c 6.4 H 10/11/21 06:55: POC Glucose 147 H Radiography Diagnostic Testing: Radiology Impression Head/Neck CTA 10/10/21 15:30 IMPRESSION: No arterial occlusion or hemodynamically significant stenosis in the head and neck. Small thyroid nodules, amenable to further evaluation by ultrasound. Electronically Signed: Irving Garcia MD at 17:49 EDT , Chest X-Ray 10/10/21 16:20 IMPRESSION: No acute cardiopulmonary process. Electronically Signed: Irving Garcia MD at 17:25 EDT , Lumbar Spine X-Ray 10/10/21 22:20 IMPRESSION: Severe degenerative changes. No definite fracture identified. Electronically Signed: Kadeem Weir MD at 0:29 EDT , Thyroid Ultrasound 10/11/21 05:55 IMPRESSION: Multiple bilateral thyroid nodules as described. The dominant nodule is seen in the right lobe measuring 1.2 cm x 1 cm x 0.9 cm. Correlation with nuclear medicine thyroid uptake and scan recommended. Biopsy may be indicated. Electronically Signed: Torey Malhotra MD at 9:02 EDT , Physical Exam Const alert and oriented x3 Orientation / Consciousness: awake, oriented to person, oriented to place and oriented to time HEENT normocephalic and moist oral mucous membranes Eyes PERRL, EOMs intact bilaterally and conjunctivae normal Neck no lymphadenopathy Resp normal respiratory effort and clear to auscultation bilaterally Cardio regular rate, regular rhythm and no murmurs Peripheral Pulses: pulses 2+ throughout GI normal to inspection, nondistended, normoactive bowel sounds, non-tender and non-distended Extremity normal to inspection Skin no rashes or lesions noted Lesions: no lesions Rashes: no rashes Trauma: no lacerations or abrasions Neuro CN's II-XII intact bilaterally, no focal motor deficits, no sensory deficits noted and deep tendon reflexes 2+ bilaterally Neuro Narrative: Left mouth asymmetry which resolves with smile. Psych mental status grossly normal and affect normal Assessment & Plan Assessment/Plan (1) Weakness: PLAN: 1. Rule out CVA-patient reports gait ataxia and previous left lower extremity weakness. MRI of brain pending. CTA of head and neck with no occlusion or significant stenosis. Continue aspirin, statin. PT/OT/ST. Echo completed. 2. Recent mechanical fall with lumbar back pain-lumbar x-ray unremarkable. PT/OT. If work-up per #1 is unremarkable, will plan for MRI of lumbar spine. 3. Incidental thyroid nodules-thyroid ultrasound with multiple bilateral thyroid nodules. Dominant nodule in the right lobe measuring 1.2 cm x 1 cm x 0.9 cm. TSH/T4 normal. Outpatient follow-up for potential nuclear medicine thyroid uptake scan and biopsy if indicated. 4. Hypertension-stable, lisinopril/HCTZ on hold. Resume if stroke work-up unremarkable. As needed hydralazine ordered. 5. Type 2 diabetes mellitus-metformin on hold. Accu-Cheks with sliding scale insulin. Hemoglobin A1c 6.4%. 6. Gout-on allopurinol. 7. GERD-continue famotidine. 8. Dementia, unclear behavioral disturbance history-oriented and appropriate during exam. DVT prophylaxis-Lovenox subcu This patient was seen by KATHARINE Crespo under the supervision of Dr. Wilson. Time spent examining patient, reviewing data and subsequent management of care: 16 minutes Documented by User: Dr. Desean Wilson, 10/11/21 15:05 Subjective Subjective Feels well. Notes that he had mood 12 acres of lawn the day before and then just woke up just unable to move his legs. Objective Data Lab / Micro Data Result Diagrams: 10/11/21 05:13 10/11/21 05:13 Physical Exam Const alert and no apparent distress Resp normal respiratory effort, no retractions, no use of accessory muscles and clear to auscultation bilaterally Cardio regular rate, regular rhythm and S1 normal heart sound GI normal to inspection, nondistended, normoactive bowel sounds, soft to palpation, non-tender and non-distended Extremity normal to inspection Neuro oriented x3 and CN's II-XII intact bilaterally Neuro Narrative: Most drinks out of 5 in the upper extremities as well as the right lower extremity. 4-5 in the left lower extremity. Sensorium / Orientation: awake, alert and oriented to person Assessment & Plan Assessment/Plan (1) Right pontine CVA: PLAN: 1. Right pontine CVA: Causing left leg weakness. Echocardiogram showed an EF of 60%. Continue with aspirin and statin. Consult neurology. 2. Incidental thyroid nodules: Recommend outpatient follow-up with general surgery patient may need nuclear thyroid uptake scan. 20 minutes of which was spent reviewing data, documentation and evaluate patient. Charges/Coding Visit Charges Inpatient E&M: 90105 Subs Hosp L2
--- NOTE | 2021-10-11 13:35 | TELEMED_ITS ---
[facility] Telemed has confirmed receipt of a request for visit. This document confirms receipt of the order initiating the consult. To find the results of the consultation, please view the patient's reports for the scanned Telemed Consult.
[2021-10-11] MEDS: Insulin Lispro 100 UNIT/ML INSULN.PEN SC ×2 (14:03→20:38)
[2021-10-11] MEDS: 0.9% Normal Saline 1,000 ML 100 ML IV (14:05)
--- NOTE | 2021-10-11 14:13 | CHAPLAIN ---
Type of Pastoral Visit __x_ Initial Visit ___ Follow-up Visit ___ On-call Visit ___ General Patient Visit ___ Spiritual Assessment ___ Family Conference ___ Bereavement ___ Rapid Response ___ Code Blue ___ Other (describe below) Pastoral Care Referral From _x__ Patient ___ Family ___ Nurse ___ Physician ___ Appointment Coordinator ___ Scenic Arts Supervisor ___ Other (describe below) Sacrament/Intervention _x__ Active listening ___ Anointing ___ Jainism ___ Bereavement ___ Communion _x__ Lin exploration ___ _x__ Life review _x__ Prayer ___ Reconciliation ___ Sacrament of Sick _x__ Supportive presence ___ Wedding ___ Other (describe below) Pastoral Comments patient describes sudden change in health; pt concern for his at home and if she can manage on her own; pt has had numerous tests and uncertain about his own outcome; pt has strong lin and is of the Hindu tradition; pt speaks long about his service to [employer]; pt welcomes prayer and says that is exactly what I was thinking about the prayer given
[2021-10-11 14:26] LABS: Bedside Glucose 159 mg/dL (74-106)
--- NOTE | 2021-10-11 15:13 | CASEMGMT ---
NAHOMY CROWE assessment: Face to Face with patient for initial transition planning/care coordination assessment. NAHOMY CROWE introduced self and role at [facility], pt voices understanding and consents to assessment. Pt is sitting up in chair in no distress on room air. Pt is A/Ox4 but slow to answer questions at times and answers most questions for pt. Care providers, pharmacy, and demographics verified. Presentation: Pt states left hand and left foot pain and 'unable to move it' since he woke up around 0530 Admitting dx: CVA PCP: Jean-Pierre Specialists: None Preferred Pharmacy: [facility] Insurance: [facility] Prescription Benefit: [employer] Living Will/HPOA: Pt has LW/HPOA and is aware that they are not on file at [facility]. Pt's , Katharine Jennings, is HPOA. LNOK: Katharine Jennings, /HPOA Living Arrangements: Pt lives with in 1 story home with flight of steps in and states normally no concerns at home. Pt normally is independent but does state concerns with going home at this time d/t weakness. Transportation: Pt normally drives self and states no transportation concerns. DME/HHC: Pt has the following DME: rollator, walker, and grab bars. Pt states no need for any further DME and therapy evals still pending. Pt has been to [facility] for rehab in past and states would like to go to their IP rehab unit at discharge. Call to [facility] to obtain fax number and Dmitriy SW to fax referral. Pt/ state concerns with pt going home at discharge. Pt is retired. Pt does not smoke cigarettes or drink ETOH. Pt/ voice no further concerns/needs. CM to follow for therapy notes and any further discharge planning/needs. Advised pt/ to ask for CM if any further questions/concerns/needs arise, voices understanding. Pt Goal: Home Plan: [facility] [place] NAHOMY CROWE
--- NOTE | 2021-10-11 16:31 | CASEMGMT ---
RN CM, Eva Jules spoke with patient and his . Patient would like to go to [facility]. Eva Jules called and made the referral. WILSON faxed referral once PT/OT notes in computer. Ct THAKUR
[2021-10-11 16:36] LABS: Bedside Glucose 128 mg/dL (74-106)
[2021-10-11] MEDS: Atorvastatin Calcium 20 MG Tablet PO (20:39)
[2021-10-11 20:45] LABS: Bedside Glucose 171 mg/dL (74-106)
[2021-10-12] VITALS (13 sets, daily range): BP systolic 131–186; BP diastolic 69–107; PULSE 70–87; RESP 16–20; TEMP 36–37; O2SAT 93–100; BMI 31.8
[2021-10-12] MEDS: Insulin Lispro 100 UNIT/ML INSULN.PEN SC ×3 (06:27→21:37)
[2021-10-12 06:40] LABS: Bedside Glucose 152 mg/dL (74-106)
[2021-10-12 06:46] LABS: Absolute Lymphocyte Count 2.34 X10^3/uL (0.83-4.51); Absolute Neutrophil Count 6.6 X10^3/uL (2.0-7.7); Basophil# 0.04 X10^3/uL; Basophil% 0.4 % (0-1); Eosinophil# 0.16 X10^3/uL; Eosinophils% 1.6 % (0-5); Hemoglobin 13.5 g/dL (13.0-16.5); Lymphocyte # 2.34 X10^3/ul (0.83-4.51); Lymphocyte % 23.6 % (19-41); Mean Corp Hgb Conc 32.1 g/dL (32-36); Mean Corpuscular Hgb 29.2 pg (27.0-32.0); Mean Corpuscular Volume 90.7 fL (80-94); Mean Platelet Vol. 10.1 fl (6.2-12.0); Monocyte# 0.79 X10^3/uL; NRBC Flagged by Analyzer 0 % (0-5); Neutrophil # 6.56 X10^3/uL (2.7-7.7); Neutrophil % 66.1 % (47-70); Platelet Count 202 K/mm3 (150-450); RBC Distribution Width CV 13.2 % (11.6-14.6); RBC Distribution Width SD 43.3 fl (35.1-43.9); Red Blood Count 4.63 M/mm3 (4.6-6.2); White Blood Count 9.9 K/mm3 (4.4-11.0)
[2021-10-12] MEDS: Enoxaparin 40 MG/0.4 ML Syringe SC (09:06)
[2021-10-12] MEDS: Famotidine 20 MG Tablet PO (09:06)
[2021-10-12] MEDS: Clopidogrel Bisulfate 75 MG Tablet PO (09:06)
[2021-10-12] MEDS: Aspirin 81 MG TAB.CHEW PO (09:06)
--- NOTE | 2021-10-12 11:22 | PCM.PN.HOSP ---
Documented by User: Zaira Guadalupe NP, FUR TRIMMER-C 10/12/21 11:32 Subjective Subjective Patient seen and examined. Denies new symptoms or complaints. Patient tearful during assessment. States he has been more emotional after stroke. States he seems to have good strength on his left side however difficulty controlling movement. Requesting rehab at [facility]. Objective Data Objective Data Vital Signs: Vital Signs Temp Pulse Resp BP Pulse Ox 96.8 F L 80 16 153/69 H 96 10/12/21 09:03 10/12/21 09:41 10/12/21 09:03 10/12/21 09:03 10/12/21 09:03 Oxygen Delivery Method Room Air Weight: 222 lb 7.143 oz Body Mass Index (BMI) 31.8 Intake & Output: Intake and Output for Last 24 Hours 10/10/21 10/11/21 10/12/21 23:59 23:59 23:59 Intake Total 1979 / 1979 1000 / 1000 Output Total 1100 / 1100 400 / 400 Balance 880 / 880 600 / 600 Lab / Micro Data Result Diagrams: 10/12/21 05:30 10/11/21 05:13 Labs: Laboratory Results - last 24 hr 10/11/21 13:59: POC Glucose 159 H 10/11/21 16:29: POC Glucose 128 H 10/11/21 20:37: POC Glucose 171 H 10/12/21 05:30: WBC 9.9, RBC 4.63, Hgb 13.5, Hct 42.0, MCV 90.7, MCH 29.2, MCHC 32.1, RDW Std Deviation 43.3, RDW Coeff of Hossein 13.2, Plt Count 202, MPV 10.1, Immature Gran % (Auto) 0.300, Neut % (Auto) 66.1, Lymph % (Auto) 23.6, [place] % (Auto) 8.0, Eos % (Auto) 1.6, Baso % (Auto) 0.4, Absolute Neuts (auto) 6.6, Absolute Lymphs (auto) 2.34, Nucleated RBC % 0 10/12/21 06:25: POC Glucose 152 H Radiography Diagnostic Testing: Radiology Impression Venous Doppler Study 10/10/21 20:11 Interpretation Summary There is no evidence of right lower extremity deep vein thrombosis. Right great saphenous vein appears patent and compressible segmentally. Abbreviated COVID-19 protocol utilized Ordering Physician: Carina Doe Performed By: Jose Rojas RVT Brain MRI 10/10/21 20:26 IMPRESSION: Subacute infarct of the right side of the anival. Electronically Signed: Khoa Tejeda MD at 13:26 EDT , ADDENDUM: 10/11/21 1342 IMPRESSION: Subacute infarct of the right side of the anival. N.B. : The above Results were Read Back by Khoa Tejeda MD to Charge Nurse Olivia Whitaker RN, and understanding confirmed on 10/11/2021 13:35:17 (ET). Electronically Signed: Khao Tejeda MD at 13:26 EDT , Echocardiogram 10/10/21 20:28 Interpretation Summary Normal LV size. Left ventricular systolic function is normal. The estimated ejection fraction is 60 %. Stage 1 diastolic dysfunction. Mild concentric left ventricular hypertrophy. Bubble contrast study negative for right to left interatrial shunt. Contrast injection was performed. Ordering Physician: Carina Doe Referring Physician: Shavon Morejon Performed By: Adam Cee RCS Physical Exam Const alert and oriented x3 Orientation / Consciousness: awake, oriented to person, oriented to place and oriented to time HEENT normocephalic and moist oral mucous membranes Eyes PERRL, EOMs intact bilaterally and conjunctivae normal Neck no lymphadenopathy Resp normal respiratory effort and clear to auscultation bilaterally Cardio regular rate, regular rhythm and no murmurs Peripheral Pulses: pulses 2+ throughout GI normal to inspection, nondistended, normoactive bowel sounds, non-tender and non-distended Extremity normal to inspection Skin no rashes or lesions noted Lesions: no lesions Rashes: no rashes Trauma: no lacerations or abrasions Neuro CN's II-XII intact bilaterally, no focal motor deficits, no sensory deficits noted and deep tendon reflexes 2+ bilaterally Neuro Narrative: Left facial droop, left-sided ataxia. Psych mental status grossly normal Mood & Affect: tearful Assessment & Plan Assessment/Plan (1) Right pontine CVA: PLAN: 1. Acute right pontine stroke- CTA of head and neck with no occlusion or significant stenosis. MRI of brain with subacute infarct of the right side of the anival. Continue aspirin, statin, Plavix. Dual antiplatelet therapy for 3 weeks, then continue with single antiplatelet therapy with aspirin. PT/OT/ST. Echo demonstrated an EF of 60%, stage I diastolic dysfunction, bubble contrast study negative for [id number] interatrial shunt. 30-day Holter monitor at discharge to exclude PAF. Awaiting acceptance at rehab. 2. Recent mechanical fall with lumbar back pain-lumbar x-ray unremarkable. PT/OT. PRN pain regimen. 3. Incidental thyroid nodules-thyroid ultrasound with multiple bilateral thyroid nodules. Dominant nodule in the right lobe measuring 1.2 cm x 1 cm x 0.9 cm. TSH/T4 normal. Outpatient follow-up for potential nuclear medicine thyroid uptake scan and biopsy if indicated. 4. Hypertension-resume lisinopril/HCTZ. As needed hydralazine ordered. 5. Type 2 diabetes mellitus-metformin on hold. Accu-Cheks with sliding scale insulin. Hemoglobin A1c 6.4%. 6. Gout-on allopurinol. 7. GERD-continue famotidine. 8. Dementia, unclear behavioral disturbance history-oriented and appropriate during exam. DVT prophylaxis-Lovenox subcu This patient was seen by KATHARINE Crespo under the supervision of Dr. Wilson. Time spent examining patient, reviewing data and subsequent management of care: 12 minutes Documented by User: Dr. Desean Wilson, 10/12/21 14:30 Subjective Subjective Been tearful at times. Is concerned that he may be emotional due to the stroke. Objective Data Lab / Micro Data Result Diagrams: 10/12/21 05:30 10/11/21 05:13 Physical Exam Const alert and no apparent distress Resp normal respiratory effort, no retractions, no use of accessory muscles and clear to auscultation bilaterally Cardio regular rate, regular rhythm, S1 normal heart sound and S2 normal heart sound GI normal to inspection, nondistended, normoactive bowel sounds, soft to palpation, non-tender and non-distended Extremity normal to inspection Neuro Neuro Narrative: Muscle strength 5-5 in the right upper and lower extremity. 4 out of 5 in the left upper and left lower extremity Sensorium / Orientation: awake and alert Assessment & Plan Assessment/Plan (1) Right pontine CVA: PLAN: Patient seen and examined independently. Data and vitals reviewed. I agree with the above note by the nurse practitioner. 1. Acute right pontine stroke: Continue with dual antiplatelet therapy, statin. Patient be on dual antiplatelet therapy for 3 weeks and then to continue with aspirin thereafter. Patient will need a 30-day event monitor upon discharge to rule out atrial fibrillation. Patient still with weakness and PT OT evaluate and treat. Patient be evaluated for rehab. 2. Incidental thyroid nodules: Outpatient follow-up with nuclear medicine thyroid scan and general surgery evaluation. 3. Depression: Patient tearful during encounter. Patient certainly very overwhelmed by his strokes and new trajectory of his life. Reassurance provided to the patient that dissipate that he will eventually return home. Patient still continues to have issues may consider initiation of SSRI 20 minutes spent reviewing data, documentation and discussing with patient. Charges/Coding Visit Charges Inpatient E&M: 15867 Subs Hosp L2
[2021-10-12 15:41] LABS: Bedside Glucose 170 mg/dL (74-106)
[2021-10-12] MEDS: hydroCHLOROthiazide 12.5mg 12.5 MG PO (21:37)
[2021-10-12] MEDS: Lisinopril 20 MG Tablet PO (21:37)
[2021-10-12] MEDS: Atorvastatin Calcium 20 MG Tablet PO (21:37)
[2021-10-12 23:00] LABS: Bedside Glucose 194 mg/dL (74-106)
[2021-10-13] VITALS (9 sets, daily range): BP systolic 130–159; BP diastolic 77–89; PULSE 74–91; RESP 16–18; TEMP 36.4–36.7; O2SAT 96–97; BMI 31.8
[2021-10-13] MEDS: Insulin Lispro 100 UNIT/ML INSULN.PEN SC ×2 (06:33→11:38)
[2021-10-13 07:00] LABS: Bedside Glucose 161 mg/dL (74-106)
[2021-10-13] MEDS: Aspirin 81 MG TAB.CHEW PO (09:34)
[2021-10-13] MEDS: Clopidogrel Bisulfate 75 MG Tablet PO (09:35)
[2021-10-13] MEDS: Lisinopril 20 MG Tablet PO ×2 (09:35→22:30)
[2021-10-13] MEDS: hydroCHLOROthiazide 12.5mg 12.5 MG PO ×2 (09:35→22:30)
[2021-10-13] MEDS: Famotidine 20 MG Tablet PO (09:35)
[2021-10-13] MEDS: Enoxaparin 40 MG/0.4 ML Syringe SC (09:35)
[2021-10-13 11:40] LABS: Bedside Glucose 291 mg/dL (74-106)
--- NOTE | 2021-10-13 12:31 | PN.HOSP_ITS ---
Documented by User: Zaira Guadalupe NP, FIREARMS EXPERT-C 10/13/21 12:34 Subjective Subjective Patient seen and examined. Denies new neurologic symptoms or complaints. Feels that his left-sided strength is improving. Continues to be tearful during conversation. Discussed initiating SSRI and patient would like to wait on this. Objective Data Objective Data Vital Signs: Vital Signs Temp Pulse Resp BP Pulse Ox 98.1 F 78 16 159/79 H 96 10/13/21 11:02 10/13/21 11:12 10/13/21 11:02 10/13/21 11:02 10/13/21 11:02 Oxygen Delivery Method Room Air Weight: 221 lb 12.56 oz Body Mass Index (BMI) 31.8 Intake & Output: Intake and Output for Last 24 Hours 10/11/21 10/12/21 10/13/21 23:59 23:59 23:59 Intake Total 1979 / 1979 1000 / 1120 480 / 480 Output Total 1100 / 1100 400 / 620 1245 / 1245 Balance 880 / 880 600 / 500 -765 / -765 Lab / Micro Data Result Diagrams: 10/12/21 05:30 10/11/21 05:13 Labs: Laboratory Results - last 24 hr 10/12/21 15:18: POC Glucose 170 H 10/12/21 21:27: POC Glucose 194 H 10/13/21 06:32: POC Glucose 161 H 10/13/21 11:36: POC Glucose 291 H Physical Exam Const alert and oriented x3 Orientation / Consciousness: awake, oriented to person, oriented to place and oriented to time Exam Limitations: behavioral limitations HEENT normocephalic and moist oral mucous membranes Eyes PERRL, EOMs intact bilaterally and conjunctivae normal Neck no lymphadenopathy Resp normal respiratory effort and clear to auscultation bilaterally Cardio regular rate, regular rhythm and no murmurs Peripheral Pulses: pulses 2+ throughout GI normal to inspection, nondistended, normoactive bowel sounds, non-tender and non-distended Extremity normal to inspection Skin no rashes or lesions noted Lesions: no lesions Rashes: no rashes Trauma: no lacerations or abrasions Neuro CN's II-XII intact bilaterally, no focal motor deficits, no sensory deficits noted and deep tendon reflexes 2+ bilaterally Neuro Narrative: Left facial droop, left-sided ataxia, mild left upper and lower extremity weakness. Psych mental status grossly normal Mood & Affect: tearful Assessment & Plan Assessment/Plan (1) Right pontine CVA: PLAN: 1. Acute right pontine stroke- CTA of head and neck with no occlusion or significant stenosis. MRI of brain with subacute infarct of the right side of the anival. Continue aspirin, statin, Plavix. Dual antiplatelet therapy for 3 weeks, then continue with single antiplatelet therapy with aspirin. PT/OT/ST. Echo demonstrated an EF of 60%, stage I diastolic dysfunction, bubble contrast study negative for [id number] interatrial shunt. 30-day Holter monitor at discharge to exclude PAF. Awaiting acceptance at rehab. 2. Recent mechanical fall with lumbar back pain-lumbar x-ray unremarkable. PT/OT. PRN pain regimen. 3. Incidental thyroid nodules-thyroid ultrasound with multiple bilateral thyroid nodules. Dominant nodule in the right lobe measuring 1.2 cm x 1 cm x 0.9 cm. TSH/T4 normal. Outpatient follow-up for potential nuclear medicine thyroid uptake scan and biopsy if indicated. 4. Hypertension-resume lisinopril/HCTZ. As needed hydralazine ordered. 5. Type 2 diabetes mellitus-metformin on hold. Accu-Cheks with sliding scale insulin. Hemoglobin A1c 6.4%. 6. Gout-on allopurinol. 7. GERD-continue famotidine. 8. Dementia, unclear behavioral disturbance history-oriented and appropriate during exam. DVT prophylaxis-Lovenox subcu This patient was seen by KATHARINE Crespo under the supervision of Dr. Wilson. Discharge planning: awaiting rehab acceptance. Time spent examining patient, reviewing data and subsequent management of care: 10 minutes Documented by User: Dr. Desean Wilson DO 10/13/21 14:21 Subjective Subjective left leg strength improving, but fatigues. Objective Data Lab / Micro Data Result Diagrams: 10/12/21 05:30 10/11/21 05:13 Physical Exam Const alert and no apparent distress Resp normal respiratory effort, no retractions, no use of accessory muscles and clear to auscultation bilaterally Cardio regular rate, regular rhythm, S1 normal heart sound and S2 normal heart sound GI normal to inspection, nondistended, normoactive bowel sounds, soft to palpation and non-tender Neuro oriented x3 Neuro Narrative: strength less on the left compared to the right. Sensorium / Orientation: awake and alert Motor Exam: strength 5/5 throughout Charges/Coding Visit Charges Inpatient E&M: 45816 Subs Hosp L2
--- NOTE | 2021-10-13 13:09 | CASEMGMT ---
SW called [facility] ([phone]) and asked if they heard from insurance yet. SW was informed they have not heard from insurance yet. Ct Diaz ALARM SIGNALER OFE
--- NOTE | 2021-10-13 14:48 | CASEMGMT ---
SW completed a PHQ 9 with patient as he had a Stroke. Patient scored a 3 which indicates minimal depression. However, upon talking with patient he expressed frustration with he will be talking to someone and he will start crying. He said yesterday he was watching the news and he started crying. SW explained to patient that it is possible it is due to the stroke depending on where it was located. Patient expressed that he has always been strong. SW reassured patient crying does not make him less strong. Patient was sharing several stories from his past. SW listened and provided emotional support. SW did give patient a [facility] Stroke support group pamphlet. However, patient lives in [place] so he was planning on checking with [facility] to see if they have a Stroke support group. SW let patient know SW will let him know when SW hears from [facility] regarding his approval. Plan: [facility] [place] [facility] pending approval. Ct THAKUR
[2021-10-13 16:46] LABS: Bedside Glucose 138 mg/dL (74-106)
[2021-10-13] MEDS: Atorvastatin Calcium 20 MG Tablet PO (22:30)
[2021-10-13 22:46] LABS: Bedside Glucose 145 mg/dL (74-106)
[2021-10-14 03:17] VITALS: BP 148/70; PULSE 78; RESP 16; TEMP 36.3; O2SAT 98
[2021-10-14 03:29] VITALS: PULSE 61
[2021-10-14] MEDS: Insulin Lispro 100 UNIT/ML INSULN.PEN SC ×4 (06:30→21:47)
[2021-10-14 06:45] LABS: Bedside Glucose 151 mg/dL (74-106)
[2021-10-14 07:00] VITALS: PULSE 93
--- NOTE | 2021-10-14 07:46 | PN.HOSP_ITS ---
Subjective Subjective Complains of right ankle pain and swelling today. Objective Data Objective Data Vital Signs: Vital Signs Temp Pulse Resp BP Pulse Ox 36.3 C L 93 16 148/70 H 98 10/14/21 03:17 10/14/21 07:00 10/14/21 03:17 10/14/21 03:17 10/14/21 03:17 Oxygen Delivery Method Room Air Weight: 99.6 kg Body Mass Index (BMI) 31.8 Intake & Output: Intake and Output for Last 24 Hours 10/12/21 10/13/21 10/14/21 23:59 23:59 23:59 Intake Total 1000 / 1120 720 / 770 100 / 100 Output Total 400 / 620 1595 / 1895 600 / 600 Balance 600 / 500 -875 / -1125 -500 / -500 Lab / Micro Data Result Diagrams: 10/12/21 05:30 10/11/21 05:13 Labs: Laboratory Results - last 24 hr 10/13/21 11:36: POC Glucose 291 H 10/13/21 16:38: POC Glucose 138 H 10/13/21 22:29: POC Glucose 145 H 10/14/21 06:28: POC Glucose 151 H Physical Exam Const alert and no apparent distress Extremity Extremity Narrative: swelling over right malleolus with TTP Neuro Neuro Narrative: weaker on the left Motor Exam: strength 5/5 throughout Assessment & Plan Assessment/Plan (1) Right pontine CVA: PLAN: 1. Right pontine CVA * ASA and clopidogrel for 3 weeks, then ASA thereafter * HIS * follow up with neurology as oupt 2. Depression * at the minimum, situational given the CVA. Has been clearly tearful during the admission * consider SSRI 3. DM2 * fair control * on SSI * resume metformin 10/15 (held due to contrast for CTA) 4. Acute gout flare: prednisone burst. 5. Disposition: to rehab Charges/Coding Visit Charges Inpatient E&M: 87047 Subs Hosp L2
--- NOTE | 2021-10-14 08:26 | CASEMGMT ---
SW received a call from Shakira at [facility]. Patient was approved and can come today. Patient will need a COVID test. Ct THAKUR
[2021-10-14 09:17] VITALS: BP 140/70; PULSE 94; RESP 16; TEMP 36.6; O2SAT 96
[2021-10-14] MEDS: hydroCHLOROthiazide 12.5mg 12.5 MG PO ×2 (09:22→21:59)
[2021-10-14] MEDS: Clopidogrel Bisulfate 75 MG Tablet PO (09:22)
[2021-10-14] MEDS: Lisinopril 20 MG Tablet PO ×2 (09:22→21:47)
[2021-10-14] MEDS: Aspirin 81 MG TAB.CHEW PO (09:22)
[2021-10-14] MEDS: Famotidine 20 MG Tablet PO (09:22)
[2021-10-14] MEDS: Enoxaparin 40 MG/0.4 ML Syringe SC (09:22)
[2021-10-14 11:50] LABS: Bedside Glucose 197 mg/dL (74-106)
--- NOTE | 2021-10-14 13:08 | PCM.DC ---
Discharge Instructions Diet Discharge Diet: Low fat / Low cholesterol and 2000 Calorie Control Diet Dressing / Incision Call your doctor if you observe: Fever of 101 or Higher and - (unilateral weakness. ) Follow Up Care Test Results: Test results from this visit will be discussed in further detail at your follow-up appointment, if applicable. Discharge Plan Admission Admit Date/Time: 10/11/21 13:38 Primary Reason for Your Visit: Pontine CVA Attending Provider: Desean Wilson Primary Care Provider: Shavon Morejon Consulting Providers: Carina Doe Discharge Orders/Prescriptions Prescriptions: New atorvastatin 20 mg Tablet 20 mg PO QHS Qty: 30 RF: 0 clopidogrel 75 mg Tablet 75 mg PO DAILY Qty: 21 RF: 0 aspirin 81 mg Tablet,Chewable 81 mg PO BREAKFAST Qty: 0 RF: 0 lisinopril 20 mg Tablet 20 mg PO BID Qty: 0 RF: 0 hydrochlorothiazide 12.5 mg Capsule 12.5 mg PO BID Qty: 0 RF: 0 Held metformin 500 MG tablet 1,000 mg PO BID RF: 0 Hold Instructions: Resume on 10/15/21. metformin 500 mg Tablet 500 mg PO QHS RF: 0 Hold Instructions: Resume on 10/15/21. Discontinued lisinopril-hydrochlorothiazide [Zestoretic] 1 EACH tablet 1 ea PO BID RF: 0 Referrals / Follow Up: Shavon Morejon DO [Primary Care Provider] - Within 2 Weeks Bang Yin MD [NON-STAFF] - Within 3 Months (stroke follow up) Disposition Disposition (needs filled in before D/C Order can be placed): Inpatient Rehab Unit/Facility
--- NOTE | 2021-10-14 13:14 | DS.PCM_ITS ---
Providers Date of Admission: 10/11/21 Primary Care Physician: Dr. Shavon Morejon, DO Reason For Visit: TIA/CVA Diagnosis Discharge Diagnosis (1) Right pontine CVA: Status: Acute Code(s): I63.50 - Cerebral infarction due to unspecified occlusion or stenosis of unspe cified cerebral artery Medications at Discharge Home Medications metformin 1,000 mg PO BID 07/13/16 metformin 500 mg PO QHS 10/10/21 aspirin 81 mg PO BREAKFAST #0 tab 10/14/21 atorvastatin 20 mg PO QHS #30 tab 10/14/21 clopidogrel 75 mg PO DAILY #21 tab 10/14/21 hydrochlorothiazide 12.5 mg PO BID #0 cap 10/14/21 lisinopril 20 mg PO BID #0 tab 10/14/21 Hospital Course Operations None Procedures 2-D Echocardiogram Summary of Care Provided Minutes Spent on Discharge: 32 Hospital Course: 1. Right pontine CVA ASA and clopidogrel for 3 weeks, then ASA thereafter HIS follow up with neurology as oupt 2. Depression at the minimum, situational given the CVA. Has been clearly tearful during the admission consider SSRI 3. DM2 fair control on SSI resume metformin 10/15 (held due to contrast for CTA) 4. Acute gout flare: prednisone burst. 5. Disposition: to rehab Weight / BMI Weight Weight: 99.6 kg Body Mass Index (BMI) 31.8 ABG / Lab / Microbiology Data Result Diagrams: 10/12/21 05:30 10/11/21 05:13 Laboratory: Laboratory Results - last 24 hr 10/13/21 16:38: POC Glucose 138 H 10/13/21 22:29: POC Glucose 145 H 10/14/21 06:28: POC Glucose 151 H 10/14/21 11:42: POC Glucose 197 H D/C Instructions Discharge Diet: Low fat / Low cholesterol and 2000 Calorie Control Diet Call your doctor if you observe: Fever of 101 or Higher and - (unilateral weakness. ) Meaningful Use Info Meaningful Use Diagnoses (Choose all that apply): Ischemic CVA CVA Therapy Assessed for PT,OT and/or ST?: Yes Ischemic Stroke Antithrombotic order at d/c?: Yes Dx of Atrial fib/flutter?: No Anticoagulant at discharge?: No Reason anticoagulant not ordered: Treatment not Indicated Statins at discharge?: Yes Primary Dx Acute Ischemic CVA?: Yes IV tPA ordered during stay?: No Reason IV t-PA not ordered: Treatment not Indicated Discharge Plan Admission Admit Date/Time: 10/11/21 13:38 Primary Reason for Your Visit: Pontine CVA Attending Provider: Desean Wilson Primary Care Provider: Shavon Morejon Consulting Providers: Carina Doe Discharge Orders/Prescriptions Prescriptions: New atorvastatin 20 mg Tablet 20 mg PO QHS Qty: 30 RF: 0 clopidogrel 75 mg Tablet 75 mg PO DAILY Qty: 21 RF: 0 aspirin 81 mg Tablet,Chewable 81 mg PO BREAKFAST Qty: 0 RF: 0 lisinopril 20 mg Tablet 20 mg PO BID Qty: 0 RF: 0 hydrochlorothiazide 12.5 mg Capsule 12.5 mg PO BID Qty: 0 RF: 0 Held metformin 500 MG tablet 1,000 mg PO BID RF: 0 Hold Instructions: Resume on 10/15/21. metformin 500 mg Tablet 500 mg PO QHS RF: 0 Hold Instructions: Resume on 10/15/21. Discontinued lisinopril-hydrochlorothiazide [Zestoretic] 1 EACH tablet 1 ea PO BID RF: 0 Referrals / Follow Up: Shavon Morejon DO [Primary Care Provider] - Within 2 Weeks Bang Yin MD [NON-STAFF] - Within 3 Months (stroke follow up) Disposition Disposition (needs filled in before D/C Order can be placed): Inpatient Rehab Unit/Facility Charges/Coding Visit Charges Inpatient E&M: 21755 Disch Hosp
[2021-10-14] MEDS: predniSONE 20 MG Tablet 40 MG PO (13:28)
--- NOTE | 2021-10-14 14:33 | CASEMGMT ---
SW received orders and COVID test for patient. SW arranged for patient to get picked up at 3p via wc van. SW faxed orders and COVID test. SW notified RN and patient's via phone. SW called [facility] and notified them that patient will get picked up at 3p and SW faxed orders as well as COVID test. SW went to notify patient, but he was sleeping. SW will try again. Plan: d/c to [facility]. [facility] transported via [facility] van. Ct THAKUR
[2021-10-14 15:00] VITALS: BP 141/71; PULSE 91; RESP 16; TEMP 36.2; TEMP 36.6; O2SAT 96
--- NOTE | 2021-10-14 15:30 | NURSING ---
report called to [facility] with no questions voiced. vs taken this afternoon and pt in chair still. back to bed and transferred poorly needing much cueing to spt and max assist x2. pt c/o rt ankle and tylenol given for comfort and allopurinal for poss gout flare up.
[2021-10-14] MEDS: Acetaminophen 325 MG Tablet 650 MG PO (15:42)
[2021-10-14] MEDS: Allopurinol 100 MG Tablet PO (15:42)
--- NOTE | 2021-10-14 16:00 | CASEMGMT ---
Addendum entered by Ct Diaz 10/14/21 16:44: Phone number to [facility] is [phone] Original Note: SW called [facility] and spoke with Eileen letting her know transport is running late. She said patient has to be there by 6p. SW called [facility] and asked about the steel pickler time. SW was told it would be 80 minutes. This would be 520p. WILSON notified RN and agriculture specialist. Ct Diaz RED HAT LINUX ENGINEER OFE
[2021-10-14 17:00] VITALS: BMI 31.8
[2021-10-14 17:05] LABS: Bedside Glucose 206 mg/dL (74-106)
[2021-10-14 20:55] VITALS: BMI 31.8
[2021-10-14 21:39] VITALS: BP 143/64; PULSE 89; RESP 18; TEMP 36.5; O2SAT 95
[2021-10-14] MEDS: Atorvastatin Calcium 20 MG Tablet PO (21:46)
[2021-10-14 22:10] LABS: Bedside Glucose 300 mg/dL (74-106)
[2021-10-15 03:30] VITALS: BP 138/72; PULSE 88; RESP 18; TEMP 36.4; O2SAT 95
[2021-10-15] MEDS: Insulin Lispro 100 UNIT/ML INSULN.PEN SC (06:27)
[2021-10-15 06:46] LABS: Bedside Glucose 184 mg/dL (74-106)
[2021-10-15 08:20] VITALS: BP 126/78; PULSE 80; RESP 18; TEMP 36.4; O2SAT 94
[2021-10-15] MEDS: hydroCHLOROthiazide 12.5mg 12.5 MG PO (08:22)
[2021-10-15] MEDS: Clopidogrel Bisulfate 75 MG Tablet PO (08:28)
[2021-10-15] MEDS: Famotidine 20 MG Tablet PO (08:28)
[2021-10-15] MEDS: Enoxaparin 40 MG/0.4 ML Syringe SC (08:28)
[2021-10-15] MEDS: Aspirin 81 MG TAB.CHEW PO (08:28)
[2021-10-15] MEDS: Lisinopril 20 MG Tablet PO (08:28)
--- NOTE | 2021-10-15 08:38 | NURSING ---
Report called to [facility] for pt to be d/c there once transport arrives.
--- NOTE | 2021-10-15 08:42 | CASEMGMT ---
WILSON called [facility] and spoke with Neil. [facility] staff did communicate with them yesterday that patient wasn't coming due to transportation issues. [facility] staff also communicated with them that patient will be picked up at 9a [address] Ct Diaz MSW OFE
== END 2021-10-15 09:06 | DRG 65 ==
LOC: ED 18:28 → PCU 19:17
PROVIDERS: Nurse Practitioner Family; Admitting Provider Family Medicine; Emergency Provider Emergency Medicine; PCP Family Medicine
DX: I63.50 Cerebral infarction due to unspecified occlusion or stenosis of unspecified cerebral artery (principal); F03.91 Unspecified dementia, unspecified severity, with behavioral disturbance; G81.94 Hemiplegia, unspecified affecting left nondominant side; E11.9 Type 2 diabetes mellitus without complications; E78.5 Hyperlipidemia, unspecified; M10.9 Gout, unspecified; K21.9 Gastro-esophageal reflux disease without esophagitis; I10 Essential (primary) hypertension; E04.2 Nontoxic multinodular goiter; Z79.84 Long term (current) use of oral hypoglycemic drugs; M54.50 Low back pain, unspecified; Z87.891 Personal history of nicotine dependence; Z79.82 Long term (current) use of aspirin; F32.A Depression, unspecified; Z79.02 Long term (current) use of antithrombotics/antiplatelets; Z66 Do not resuscitate
CPT/HCPCS: 36415; 70496; 70498; 70551; 71045; 72100; 76536; 80048; 80053; 80061; 81001; 82962; 83036; 83735; 84439; 84443; 84484; 85025; 85610; 85730; 87426; 92523; 92610; 93005; 93306; 93971; 94762; 97110; 97162; 97166; 97530; 97535; 97802; 99251; 99284; J7030; Q9957; Q9967; A4216; C8929; G0463

== ENCOUNTER 2025-01-29 11:22 | Inpatient (IN) | payer MEDICARE, SELFPAY ==
[2025-01-29] VITALS (8 sets, daily range): BP systolic 130–172; BP diastolic 70–101; PULSE 74–85; RESP 18–22; TEMP 36.4–36.8; O2SAT 94–97; BMI 32.3
[2025-01-29 13:17] LABS: Hematocrit 44.5 % (40-54); Hemoglobin 14.7 g/dL (13.0-16.5); Immature Granulocytes Count 0.090 X10^3/uL (0.0-0.0); Mean Corp Hgb Conc 33.0 g/dL (32-36); Mean Corpuscular Volume 94.1 fL (80-94); Mean Platelet Vol. 11.8 fl (6.2-12.0); NRBC Flagged by Analyzer 0 % (0-5); Platelet Count 206 K/mm3 (150-450); RBC Distribution Width CV 12.5 % (11.6-14.6); RBC Distribution Width SD 43.2 fl (35.1-43.9); Red Blood Count 4.73 M/mm3 (4.6-6.2); White Blood Count 11.7 K/mm3 (4.4-11.0)
--- NOTE | 2025-01-29 13:17 | EDS_ITS ---
HPI HPI - GI History of Present Illness Chief Complaint: GI Bleed Informant: patient Abdominal Pain/Flank Pain Onset: Weeks (1) Context: Gradual Onset Timing: Waxes and wanes Quality: Dull Location: Diffuse Worsened by: Nothing Relieved by: Nothing Nausea/Vomiting/Emesis GI Symptom: Positive for Nausea and Vomiting Quality: Positive for Nonbilious; Negative for Blood streaks, Coffee ground or Hematemesis Diarrhea/Melena/Hematochezia GI Symptom: Positive for Hematochezia Onset: Today Stool Quality: Positive for BRB per rectum Episodes: 1 Associated Symptoms Associated Symptoms: Negative for Dysuria, Frequency or Hematuria Narrative Narrative: Patient presents with rectal bleeding that began today. Patient states he had a bowel movement that was bloody. Patient states it felt the toilet. Patient states he has been having some diffuse abdominal pain that has been waxing and waning over the past week. Patient describes it as dull. Patient states nothing makes it better nothing makes it worse. Patient admits to some nausea and vomiting. Patient denies any hematemesis or coffee-ground emesis. Patient denies any dysuria, frequency, or hematuria. Patient admits to some subjective chills. [facility] Medical History Former tobacco use Gout GERD (gastroesophageal reflux disease) Diabetes mellitus, type 2 Dementia Hypertension Home Medications ?Medication ?Instructions ?Recorded ?Last Taken ?Type metformin 500 mg tablet 500 mg PO DAILY diabetes 12/22 Unknown History Held on 10/14/21. Instructions: Resume on 10/15/21. atorvastatin 20 mg tablet 20 mg PO QHS #30 tabs Unknown Rx lisinopril 20 mg tablet 20 mg PO BID #0 tabs 2 Unknown Rx metformin 1,000 mg tablet 1,000 mg PO 1700 01/29/25 Un known History metoprolol tartrate 50 mg tablet 50 mg PO BID 01/29/25 Unknown History omeprazole 20 mg capsule,delayed 20 mg PO BID 01/29/25 Unknown History release spironolactone 25 mg tablet 25 mg PO BID 01/29/25 Unkn own History tamsulosin 0.4 mg capsule 0.4 mg PO BID 01/29/25 Unkno wn History Allergy/AdvReac Type Severity Reaction Status Date / Time cheese Allergy Anaphylaxis Verified 01/29/25 11:26 egg Allergy Anaphylaxis Verified 01/29/25 11:26 Fish Containing Products Allergy Anaphylaxis Verified 01/29/25 11:26 Surgical History S/P skin cancer resection 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 alcohol intake: never substance use type: does not use ROS ROS ED Constitutional Constitutional ED: Reports chills and subjective; Denies fever(s) Eyes Eyes: Reports blurry vision ENT ENT ED: Denies rhinorrhea or sore throat Cardiovascular Cardiovascular: Denies chest pain or palpitations Respiratory/Chest Respiratory/Chest: Denies cough or dyspnea Gastrointestinal Gastrointestinal: Reports abdominal pain, melena, nausea and vomiting Genitourinary Genitourinary ED: Denies dysuria or hematuria Musculoskeletal Musculoskeletal: Denies back pain or neck pain Integumentary Denies abscess or rash Neurologic Neurologic: Denies headache(s) or weakness Allergic/Immunologic Allergic/Immunologic ED: Denies mouth swelling or urticaria EXAM Physical Exam Const Vital Signs: 01/29/25 11:23 01/29/25 13:23 01/29/25 15:00 Temperature 98.3 F 97.8 F Temperature Source Oral Oral Pulse Rate 84 74 79 Respiratory Rate 22 H 18 18 Blood Pressure 155/75 H 148/83 H 159/88 H Blood Pressure [Lying] Blood Pressure [Sitting (for 1 minute prior to obtaining)] Blood Pressure Mean 101 104 111 Blood Pressure Mean [Lying] Blood Pressure Mean [Sitting (for 1 minute prior to obtaining)] Pulse Ox 94 94 95 Oxygen Delivery Method Room Air Room Air Room Air 01/29/25 15:14 Temperature Temperature Source Pulse Rate Respiratory Rate Blood Pressure Blood Pressure [Lying] 167/87 H Blood Pressure [Sitting (for 1 minute prior to obtaining)] 172/101 H Blood Pressure Mean Blood Pressure Mean [Lying] 113 Blood Pressure Mean [Sitting (for 1 minute prior to obtaining)] 124 Pulse Ox Oxygen Delivery Method Positive well nourished and well developed General Appearance ED: well developed and NAD HEENT Reports moist mucous membranes Neck supple and no JVD Resp normal respiratory effort and clear to auscultation bilaterally Cardio regular rate and regular rhythm GI non-distended Palpation: soft and tender epigastric, LLQ, RLQ, LUQ, RUQ, periumbilical and suprapubic; Negative for guarding or rebound tenderness present Neuro CN's II-XII intact bilaterally, moves all extremities and no sensory deficits noted Sensorium / Orientation: alert Motor Exam: strength 5/5 throughout Psych mental status grossly normal MDM MDM MDM Narrative Medical decision making narrative: Differential diagnosis includes gastrointestinal bleeding, anemia, electrolyte abnormality, diverticulitis, colitis, colon mass, and viral illness. CT scan of the abdomen and pelvis will be obtained to assess for gastrointestinal bleeding, diverticulitis, colitis, and mass. CBC will be obtained to assess for leukocy tosis and anemia. Comprehensive metabolic profile will be obtained to assess for hepatic function, renal function, and electrolyte abnormality. Lipase will be obtained to assess for pancreatitis. History & Record Review Additional record(s) reviewed:: Prior inpatient record and Prior labs Lab Data Attestation: I reviewed the patient's lab results. Lab results narrative: CBC was reviewed. There is a mild leukocytosis of 11.7. Hemoglobin was stable at 14.7 and hematocrit was 44.5. Platelets were normal. Comprehensive metabolic profile was reviewed. Glucose was mildly elevated at 179. The remainder is within normal limits. Lipase was reviewed and was normal at 28. Labs: Laboratory Results - last 24 hr 01/29/25 12:38 WBC 11.7 H RBC 4.73 Hgb 14.7 Hct 44.5 MCV 94.1 H MCH 31.1 MCHC 33.0 RDW Std Deviation 43.2 RDW Coeff of Hossein 12.5 Plt Count 206 MPV 11.8 Immature Gran % (Auto) 0.800 Neut % (Auto) 67.1 Lymph % (Auto) 24.8 [place] % (Auto) 5.1 Eos % (Auto) 1.9 Baso % (Auto) 0.3 Absolute Neuts (auto) 7.9 H Absolute Lymphs (auto) 2.91 Nucleated RBC % 0 Sodium 137 Potassium 4.4 Chloride 101 Carbon Dioxide 23.6 Anion Gap 12 BUN 14 Creatinine 0.77 Estim Creat Clear Calc 79.35 Est GFR (MDRD) Non-Af 87 BUN/Creatinine Ratio 18.7 Glucose 179 H Calcium 9.1 Total Bilirubin 0.39 AST 14 ALT 16 Alkaline Phosphatase 82 Total Protein 7.1 Albumin 3.7 Globulin 3.4 Albumin/Globulin Ratio 1.1 Lipase 28 Radiography Diagnostic Testing: Clinical Impression(s) from Imaging Studies Abdomen/Pelvis CT 01/29/25 14:05 IMPRESSION: Perinephric fat stranding. Correlation with urinalysis is recommended. No hydronephrosis or nephrolithiasis. Colonic diverticulosis with no evidence of acute diverticulitis. Reading Location: [facility] Management Discussion w/another healthcare provider: Hospitalist (Dr. Lopez) and Ball Thread Machine Tender (Dr. Linda) Treatment and Re-Evaluation :: Patient was given morphine and Zofran. Patient was advised of his findings. Case was discussed with Dr. Lnida from gastroenterology. He had no further recommendations. Patient has an elevated Bartlett score. Because of this, recommended admission to the hospital. Patient is agreeable with this. Case was discussed with the hospitalist. She will admit the patient to [facility] floor. Patient and family understood and were agreeable with the plan. All questions were answered. Discharge Plan Dx/Rx/DC Orders Clinical Impression: Acute lower gastrointestinal bleeding, Elevated blood pressure reading, Diabetes mellitus Disposition Disposition: [facility]
[2025-01-29 13:53] LABS: AST(SGOT) 14 U/L (<=37); Alanine Aminotransfer ALT/SGPT 16 U/L (<=46); Albumin, Serum 3.7 g/dL (3.4-4.8); Alkaline Phosphatase 82 U/L (40-129); Anion Gap 12 (5-15); BUN 14 mg/dL (4-19); BUN/Creat Ratio 18.7 RATIO (10-20); Calcium,Total 9.1 mg/dL (7.6-11.0); Carbon Dioxide 23.6 mmol/L (21.0-32.0); Chloride 101 mmol/L (98-108); Estimated Creatinine Clearance 79.35 ml/min (50-250); Globulin 3.4 g/dL (2.2-4.2); Glucose 179 mg/dL (70-99); Lipase 28 U/L (13-75); Potassium 4.4 mmol/L (3.3-5.1)
--- NOTE | 2025-01-29 14:05 | CT_ITS ---
PROCEDURE: ABDOMEN/PELVIS W IV CONT ONLY 01/29/2025 REASON FOR EXAM: ABDOMINAL PAIN TECHNIQUE: Procedure Code: [id number] Modality: CT Procedure: ABDOMEN/PELVIS W IV CONT ONLY Coronal and Sagittal reconstruction series were provided. One or more dose reduction techniques were used (e.g., Automated exposure control, adjustment of the mA and/or kV according to patient size, use of iterative reconstruction technique. RADIATION DOSE SUMMARY: CTDlvol: 30.60 mGy DLP: 1714.83 mGycm COMPARISON: CT abdomen and pelvis September 09, 2021. FINDINGS: Lung bases: Linear atelectasis in the lung bases. Liver: A subcentimeter cysts in the right hepatic lobe which is too small to characterize on CT scan. Gallbladder: Status post cholecystectomy. No biliary dilation. Spleen: Unremarkable. Pancreas: Unremarkable. Adrenals: Unremarkable. Kidneys: Perinephric fat stranding. No nephrolithiasis. No hydronephrosis. Bladder: Distended but otherwise unremarkable. Reproductive Organs: The prostate is enlarged measures 6.8 cm. Bowel: Colonic diverticulosis with no evidence of acute diverticulitis. Appendix: Unremarkable. Lymph nodes: No lymphadenopathy. Vasculature: Atherosclerotic calcifications. Peritoneum / Retroperitoneum: No free air or free fluid. Bones: Status post total right hip replacement. No acute bony abnormalities. 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 CT/Abdomen/Pelvis W IV Cont ONLY IMPRESSION: Perinephric fat stranding. Correlation with urinalysis is recommended. No hyd ronephrosis or nephrolithiasis. Colonic diverticulosis with no evidence of acute diverticulitis. Reading Location: [id number]
--- NOTE | 2025-01-29 15:57 | ED.RN ---
Pt unable to ambulate x3 year due hx of cva, therefore standing orthro not completed.
--- NOTE | 2025-01-29 17:32 | HP.PCM.HOS_ITS ---
HPI - General General Date of Admission: 01/29/25 Date of Service: 01/29/25 Chief Complaint: Bright red blood per rectum HPI Narrative NNAMDI TRUJILLO, is a 84-year-old male history of GERD, diabetes, BPH presented to [facility] ED 01/29/2025 with rectal bleeding began today. Notes that he had a bowel movement that was bloody and felt like it filled the toilet and has been having some diffuse abdominal pain that has been waxing waning over the past week that is dull in nature with nothing making it better nothing making it worse. Also has had some nausea and vomiting without any hematemesis or coffee-ground emesis. In the ED temp 98.3, heart rate 84, blood pressure 155/75, respiratory rate 22 pulse ox 94% on room air. CBC with white count 11.7, hemoglobin 14.7, CMP only notable for glucose of 179 otherwise within normal limits, lipase 28. CT abdomen pelvis with perinephric fat stranding and recommended correlation with urinalysis. No evidence of diverticulitis or other acute process. Given elevated Vinton score and episode of bright red blood that filled the toilet GI was contacted and agreeable to seeing patient in consult. Hospitalist contacted for admission. Patient evaluated bedside. He reports history as above with intermittent abdominal pain more so in center of his abdomen over the past week, though rectal bleeding was large-volume bright red blood earlier today, has never happened before and has not happened again since, intermittently nauseous but feels better after Zofran. No bladder concerns, no fevers. 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 Has had some cough over the past month and also reports his throat has been sore for the past week, unclear if this is from the cough or otherwise. [facility] Medical History Former tobacco use Gout GERD (gastroesophageal reflux disease) Diabetes mellitus, type 2 Dementia Hypertension Home Medications ?Medication ?Instructions ?Recorded ?Last Taken ?Type metformin 500 mg tablet 500 mg PO DAILY diabetes 12/22 Unknown History Held on 10/14/21. Instructions: Resume on 10/15/21. atorvastatin 20 mg tablet 20 mg PO QHS #30 tabs Unknown Rx lisinopril 20 mg tablet 20 mg PO BID #0 tabs 2 Unknown Rx metformin 1,000 mg tablet 1,000 mg PO 1700 01/29/25 Un known History metoprolol tartrate 50 mg tablet 50 mg PO BID 01/29/25 Unknown History omeprazole 20 mg capsule,delayed 20 mg PO BID 01/29/25 Unknown History release spironolactone 25 mg tablet 25 mg PO BID 01/29/25 Unkn own History tamsulosin 0.4 mg capsule 0.4 mg PO BID 01/29/25 Unkno wn History Allergy/AdvReac Type Severity Reaction Status Date / Time cheese Allergy Anaphylaxis Verified 01/29/25 11:26 egg Allergy Anaphylaxis Verified 01/29/25 11:26 Fish Containing Products Allergy Anaphylaxis Verified 01/29/25 11:26 Surgical History S/P skin cancer resection 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 alcohol intake: never substance use type: does not use ROS ROS Narrative General: Denies fever/chills HENT: Denies headache, denies stuffy nose, denies sore throat EYES: Sometimes gets blurry vision in both eyes Resp: Has had a slight dry cough over the past month, denies shortness of breath Cardiac: Denies chest pain GI: Some central abdominal pain, denies diarrhea outside of episode of bright red blood earlier, has had some intermittent nausea : Denies changes in urination Extremity: Denies new swelling MSK: Chronic left lower extremity weakness Neuro: Denies any numbness/tingling, chronic left lower extremity weakness Heme: Denies any bleeding or bruising Skin: Denies new rashes Psychiatric: No complaints voiced Vital Signs Vital Signs Vital Signs: 01/29/25 11:23 01/29/25 13:23 01/29/25 15:00 Temperature 98.3 F 97.8 F Temperature Source Oral Oral Pulse Rate 84 74 79 Respiratory Rate 22 H 18 18 Blood Pressure 155/75 H 148/83 H 159/88 H Blood Pressure [Lying] Blood Pressure [Sitting (for 1 minute prior to obtaining)] Blood Pressure Mean 101 104 111 Blood Pressure Mean [Lying] Blood Pressure Mean [Sitting (for 1 minute prior to obtaining)] Pulse Ox 94 94 95 Oxygen Delivery Method Room Air Room Air Room Air 01/29/25 15:14 01/29/25 17:00 Temperature 98.0 F Temperature Source Pulse Rate 85 Respiratory Rate 18 Blood Pressure 151/81 H Blood Pressure [Lying] 167/87 H Blood Pressure [Sitting (for 1 minute prior to obtaining)] 172/101 H Blood Pressure Mean 104 Blood Pressure Mean [Lying] 113 Blood Pressure Mean [Sitting (for 1 minute prior to obtaining)] 124 Pulse Ox 97 Oxygen Delivery Method Weight Weight: 102.1 kg Body Mass Index (BMI) 32.3 Physical Exam Narrative General: Alert, oriented, no apparent distress HEENT: Atraumatic, normocephalic Eyes: Anicteric, normal conjunctiva, extraocular movements grossly intact Neck: Supple Respiratory: Clear to auscultation bilaterally, normal respiratory effort Cardiovascular: Regular rate and rhythm GI: Soft, nondistended, tender somewhat centrally without rebound, guarding, rigidity Extremities: No significant pitting edema Musculoskeletal: Moving all extremities though has weakness in left lower extremity which is chronic Neuro: No overt focal neurological deficits appreciated except left lower extremity edema Skin: No rashes appreciated Psych: Cooperative Results Lab / Micro Data 01/29/25 12:38 01/29/25 12:38 Labs: Laboratory Results - last 24 hr 01/29/25 12:38: WBC 11.7 H, RBC 4.73, Hgb 14.7, Hct 44.5, MCV 94.1 H, MCH 31.1, MCHC 33.0, RDW Std Deviation 43.2, RDW Coeff of Hossein 12.5, Plt Count 206, MPV 11.8, Immature Gran % (Auto) 0.800, Neut % (Auto) 67.1, Lymph % (Auto) 24.8, [place] % (Auto) 5.1, Eos % (Auto) 1.9, Baso % (Auto) 0.3, Absolute Neuts (auto) 7.9 H, Absolute Lymphs (auto) 2.91, Nucleated RBC % 0, Sodium 137, Potassium 4.4, Chloride 101, Carbon Dioxide 23.6, Anion Gap 12, BUN 14, Creatinine 0.77, Estim Creat Clear Calc 79.35, Est GFR (MDRD) Non-Af 87, BUN/Creatinine Ratio 18.7, Glucose 179 H, Calcium 9.1, Total Bilirubin 0.39, AST 14, ALT 16, Alkaline Phosphatase 82, Total Protein 7.1, Albumin 3.7, Globulin 3.4, Albumin/Globulin Ratio 1.1, Lipase 28 Imaging Radiology Impression Abdomen/Pelvis CT 01/29/25 14:05 IMPRESSION: Perinephric fat stranding. Correlation with urinalysis is recommended. No hydronephrosis or nephrolithiasis. Colonic diverticulosis with no evidence of acute diverticulitis. Reading Location: [facility] Assessment & Plan Assessment/Plan (1) Acute lower gastrointestinal bleeding: (2) Diabetes mellitus: PLAN: Plan # Concern for GI bleed w/ BRBPR -Likely lower but also complained of some soreness in mid mid/upper throat as well -Will cycle H&H -Hemoglobin presently stable at 14.7 and patient not hypotensive -Will change patient's PPI to IV -GI c/s, ED physician discussed with GI and they ED and were agreeable to see patient in consult, consult placed #Abn CT - Queried perinephric fat stranding on CT scan -Will obtain UA for better evaluation - Denies any urinary symptoms at present #Chronic BPH with obstruction -Continue home medications #Type 2 diabetes mellitus -Glucose checks and sliding scale insulin -Hold home metformin # History of right pontine CVA -Continue statin - Patient reports he is not on any aspirin or Plavix #Hypertension - Patient is actually hypertensive, continue lisinopril and metoprolol holding parameters #DVT ppx: SCDs Liz Lopez MD Charges/Coding Visit Charges Inpatient E&M: 66586 Init Hosp L2
[2025-01-29 19:45] LABS: Hematocrit 43.3 % (40-54); Hemoglobin 14.3 g/dL (13.0-16.5)
[2025-01-29] MEDS: 0.9% Saline Lock 10 ML Syringe IV ×2 (20:03→21:20)
[2025-01-29] MEDS: 0.9% Normal Saline (1000mL) 1,000 ML 50 ML IV (20:03)
[2025-01-29] MEDS: Pantoprazole Sodium 40 MG in 0.9% Normal Saline (100mL MB+) 100 ML 300 MG IV (20:25)
[2025-01-29 22:06] LABS: Mucous, Urine 0 SEEN /hpf (<or=2+)
[2025-01-29 22:11] LABS: Color, Urine Yellow (Yellow); Glucose, Dipstick Normal (Normal); Ketone-Dipstick Negative (Negative); Leukocyte Esterase-Dipstick 500 /ul (Negative); Nitrite-Dipstick Positive (Negative); Occult Blood-Urine 25 /ul (Negative); Protein-Dipstick 30 mg/dl (Negative); Specific Gravity, Urine 1.015 (1.002-1.030); Urine Bilirubin Dipstick Negative (Negative)
[2025-01-29 22:46] LABS: Red Blood Cells-Urine > 100 SEEN /hpf (0-5); Squamous Epithelial Cells - UA 0-5 SEEN /hpf (0-5); Transitional Epithelial - Ur 0-5 SEEN /hpf (0-5)
[2025-01-30] VITALS (7 sets, daily range): BP systolic 112–144; BP diastolic 50–75; PULSE 74–90; RESP 16–22; TEMP 36.4–37.1; O2SAT 94–97
[2025-01-30 00:40] LABS: Hematocrit 41.6 % (40-54); Hemoglobin 14.0 g/dL (13.0-16.5)
[2025-01-30 07:33] LABS: Hematocrit 40.7 % (40-54); Hemoglobin 13.6 g/dL (13.0-16.5); Immature Granulocytes Count 0.050 X10^3/uL (0.0-0.0); Mean Corp Hgb Conc 33.4 g/dL (32-36); Mean Corpuscular Volume 92.3 fL (80-94); Mean Platelet Vol. 10.1 fl (6.2-12.0); NRBC Flagged by Analyzer 0 % (0-5); Platelet Count 194 K/mm3 (150-450); RBC Distribution Width CV 12.6 % (11.6-14.6); RBC Distribution Width SD 42.8 fl (35.1-43.9); Red Blood Count 4.41 M/mm3 (4.6-6.2); White Blood Count 13.6 K/mm3 (4.4-11.0)
[2025-01-30 08:05] LABS: Anion Gap 13 (5-15); BUN 11 mg/dL (4-19); BUN/Creat Ratio 17.1 RATIO (10-20); Calcium,Total 8.3 mg/dL (7.6-11.0); Carbon Dioxide 20.3 mmol/L (21.0-32.0); Chloride 104 mmol/L (98-108); Estimated Creatinine Clearance 77.88 ml/min (50-250); Glucose 188 mg/dL (70-99); Potassium 4.4 mmol/L (3.3-5.1)
[2025-01-30] MEDS: Pantoprazole Sodium 40 MG in 0.9% Normal Saline (100mL MB+) 100 ML 300 MG IV ×2 (09:59→21:10)
--- NOTE | 2025-01-30 10:05 | PCM.PN.HOSP ---
Subjective Subjective No issues overnight, hemoglobin is stable and not very concerning for significant GI bleed Objective Data Objective Data Vital Signs: Vital Signs Temp Pulse Resp BP Pulse Ox O2 Del Method 98.0 F 81 22 H 137/70 H 94 Room Air 01/30/25 05:07 01/30/25 05:07 01/30/25 05:07 01/30/25 05:07 01/30/25 05:07 01/30/25 05:07 Oxygen Delivery Method Room Air Weight: 225 lb 1.471 oz Body Mass Index (BMI) 32.3 Intake & Output: Intake and Output for Last 24 Hours 01/29/25 01/30/25 01/31/25 03:59 03:59 03:59 Intake Total 200 / 200 50 / 50 Output Total 200 / 200 Balance 0 / 0 50 / 50 Lab / Micro Data 01/30/25 07:25 01/30/25 07:25 Labs: Laboratory Results - last 24 hr 01/29/25 12:38: WBC 11.7 H, RBC 4.73, Hgb 14.7, Hct 44.5, MCV 94.1 H, MCH 31.1, MCHC 33.0, RDW Std Deviation 43.2, RDW Coeff of Hossein 12.5, Plt Count 206, MPV 11.8, Immature Gran % (Auto) 0.800, Neut % (Auto) 67.1, Lymph % (Auto) 24.8, [place] % (Auto) 5.1, Eos % (Auto) 1.9, Baso % (Auto) 0.3, Absolute Neuts (auto) 7.9 H, Absolute Lymphs (auto) 2.91, Nucleated RBC % 0, Sodium 137, Potassium 4.4, Chloride 101, Carbon Dioxide 23.6, Anion Gap 12, BUN 14, Creatinine 0.77, Estim Creat Clear Calc 79.35, Est GFR (MDRD) Non-Af 87, BUN/Creatinine Ratio 18.7, Glucose 179 H, Calcium 9.1, Total Bilirubin 0.39, AST 14, ALT 16, Alkaline Phosphatase 82, Total Protein 7.1, Albumin 3.7, Globulin 3.4, Albumin/Globulin Ratio 1.1, Lipase 28 01/29/25 19:30: Hgb 14.3, Hct 43.3 01/29/25 20:35: POC Glucose 189 H 01/29/25 21:55: Urine Color Yellow, Urine Clarity Cloudy, Urine pH 6.0, Ur Specific [place] 1.015, Urine Protein 30 H, Urine Glucose (UA) Normal, Urine Ketones Negative, Urine Occult Blood 25 H, Urine Nitrite Positive H, Urine Bilirubin Negative, Urine Urobilinogen Normal, Ur Leukocyte Esterase 500 H, Urine RBC > 100 SEEN, Urine WBC 0-5 SEEN, Ur Squamous Epith Cells 0-5 SEEN, Ur Transition Epith Cell 0-5 SEEN, Urine Bacteria 3+, Urine Mucus 0 SEEN 01/30/25 00:33: Hgb 14.0, Hct 41.6 01/30/25 06:42: POC Glucose 149 H 01/30/25 07:25: WBC 13.6 H, RBC 4.41 L, Hgb 13.6, Hct 40.7, MCV 92.3, MCH 30.8, MCHC 33.4, RDW Std Deviation 42.8, RDW Coeff of Hossein 12.6, Plt Count 194, MPV 10.1, Immature Gran % (Auto) 0.400, Neut % (Auto) 75.3 H, Lymph % (Auto) 16.8 L, [place] % (Auto) 6.2, Eos % (Auto) 1.2, Baso % (Auto) 0.1, Absolute Neuts (auto) 10.3 H, Absolute Lymphs (auto) 2.29, Nucleated RBC % 0, Sodium 138, Potassium 4.4, Chloride 104, Carbon Dioxide 20.3 L, Anion Gap 13, BUN 11, Creatinine 0.66 L, Estim Creat Clear Calc 77.88, Est GFR (MDRD) Non-Af 91, BUN/Creatinine Ratio 17.1, Glucose 188 H, Calcium 8.3 Radiography Diagnostic Testing: Radiology Impression Abdomen/Pelvis CT 01/29/25 14:05 IMPRESSION: Perinephric fat stranding. Correlation with urinalysis is recommended. No hydronephrosis or nephrolithiasis. Colonic diverticulosis with no evidence of acute diverticulitis. Reading Location: [facility] Physical Exam Narrative General: Alert, Oriented x3, Cooperative, No apparent distress HEENT: Atraumatic, PERRLA, EOMI, Normocephalic Oral: Moist Mucosa Neck: Supple, No JVD Lungs: Diminished, Normal air movement, No rhonchi, No wheeze, No rales Cardiovascular: Regular rate, Regular Rhythm, Normal S1, Normal S2, No murmurs Abdomen: Soft, Non Tender, Non-Distended, No Hepato-splenomegaly Extremities: No edema, Capillary Refill Less than 3 Seconds Skin: No rashes, No breakdown Musculoskeletal: No Tenderness to Palpation of Joints or Extremities Neurological: No focal neurological deficits, moves all extremities Psych/Mental Status: Normal Affect, Appropriate Assessment & Plan Assessment/Plan (1) Acute lower gastrointestinal bleeding: (2) Diabetes mellitus: PLAN: Plan 1. Bright red blood per rectum without anemia/GERD ? Will discontinue serial H&H's as this is likely artificially low in his hemoglobin ? Will cancel consult for gastroenterology evaluation and can have him follow-up as an outpatient given that his hemoglobin is stable ? Can reinstituted diet ? Continue with PPI 2. UTI with perinephric fat stranding on CT scan ? UA is consistent for a UTI ? Urine cultures pending ? Continue with Rocephin 3. Essential HTN/HLD/history of CVA ? Continue with his home blood pressure medications ? Continue with his home cholesterol medications ? Will monitor make adjustments as necessary 4. DM2 ? Sliding scale insulin ? Accu-Cheks ? Will monitor make adjustments as necessary 5. BPH with obstruction ? Stable ? Continue with home medications DVT: SCDs Charges/Coding Visit Charges Inpatient E&M: 88168 Subs Hosp L2
--- NOTE | 2025-01-30 13:40 | CASEMGMT ---
NAHOMY CROWE Assessment: Face to Face with pt for initial transition planning/care coordination assessment. RN AMRITA introduced self and role at [facility], pt voices understanding and consents to assessment. Pt is A&O x4 and answers all questions appropriately at this time. Pt lying in bed in no distress. Care providers, pharmacy, and demographics verified/updated. Admitting Dx: concern for GIB Strata Score: 2 PCP:Dr.Michael Pastrana from [facility] Specialists:avery Sorensen Preferred Pharmacy: [facility] Insurance: [facility] Prescription Benefit: yes LNOK: Katharine Jennings, ; Angela Jennings, dtr Living Arrangements: Pt lives with and dtr recently moved in from [place] in a single story home with 5 steps to enter through the front with a rail. Pt states he is bedbound and his dtr and assist in all ADL/IADLs. Pt denies concerns at home. Transportation: Pt uses ambulance for transportation and will need an ambulance to transport home. Pt agreeable to [facility]. DME:hospital bed, fito, w/c, BGM with sufficient strips and lancets HHC/SNF: Pt is active with [facility] for SN. Pt has been to [facility] and states he will never go back. Pt states no concerns with going home at time of dc. TC to pt per pt request to verify physician and HHC names. She states she cares for pt wounds on days that the nurse is not there. Pt states he would like to return home with the same C resuming. He denies need for a list of other options. Requested dc patient support assistant send information to [facility]. Pt states no further concerns/needs. CM to follow. Advised pt to ask CM if any further questions/concerns/needs arise, voices understanding. Pt Goal: Home with [facility] resuming Plan: [facility] resuming David COREA CM
--- NOTE | 2025-01-30 14:15 | CASEMGMT ---
Discharge Planning HH ESSENCE sent to [facility]. Shara Chacon DC Planning Asst.
[2025-01-31 06:14] LABS: Hematocrit 39.1 % (40-54); Hemoglobin 12.8 g/dL (13.0-16.5); Immature Granulocytes Count 0.060 X10^3/uL (0.0-0.0); Mean Corp Hgb Conc 32.7 g/dL (32-36); Mean Corpuscular Volume 92.7 fL (80-94); Mean Platelet Vol. 10.5 fl (6.2-12.0); NRBC Flagged by Analyzer 0 % (0-5); Platelet Count 200 K/mm3 (150-450); RBC Distribution Width CV 12.8 % (11.6-14.6); RBC Distribution Width SD 43.8 fl (35.1-43.9); Red Blood Count 4.22 M/mm3 (4.6-6.2); White Blood Count 12.1 K/mm3 (4.4-11.0)
[2025-01-31 06:30] VITALS: BP 136/70; PULSE 75; RESP 18; TEMP 37.2; O2SAT 94
[2025-01-31 06:36] LABS: Anion Gap 11 (5-15); BUN 13 mg/dL (4-19); BUN/Creat Ratio 15.7 RATIO (10-20); Calcium,Total 8.3 mg/dL (7.6-11.0); Carbon Dioxide 21.0 mmol/L (21.0-32.0); Chloride 103 mmol/L (98-108); Estimated Creatinine Clearance 73.30 ml/min (50-250); Glucose 220 mg/dL (70-99); Potassium 4.3 mmol/L (3.3-5.1)
--- NOTE | 2025-01-31 07:59 | WOUNDNOTE ---
wound photo: bilateral buttocks
[2025-01-31 08:34] VITALS: BP 150/64; PULSE 68; RESP 18; TEMP 36.2; O2SAT 94
[2025-01-31 08:42] VITALS: PULSE 68
[2025-01-31] MEDS: Pantoprazole Sodium 40 MG in 0.9% Normal Saline (100mL MB+) 100 ML 300 MG IV ×2 (10:06→21:24)
[2025-01-31] MEDS: 0.9% Saline Lock 10 ML Syringe IV (10:07)
--- NOTE | 2025-01-31 11:40 | PN.HOSP_ITS ---
Subjective Subjective Doing well, still not significantly anemic. Awaiting for urine cultures Objective Data Objective Data Vital Signs: Vital Signs Temp Pulse Resp BP Pulse Ox O2 Del Method 97.1 F L 68 18 150/64 H 94 Room Air 01/31/25 08:34 01/31/25 08:42 01/31/25 08:34 01/31/25 08:34 01/31/25 08:34 01/31/25 09:04 Oxygen Delivery Method Room Air Weight: 225 lb 1.471 oz Body Mass Index (BMI) 32.3 Intake & Output: Intake and Output for Last 24 Hours 01/30/25 01/31/25 02/01/25 03:59 03:59 03:59 Intake Total 200 / 200 1013.33 / 1013.33 400 / 400 Output Total 200 / 200 300 / 350 125 / 125 Balance 0 / 0 713.33 / 663.33 275 / 275 Lab / Micro Data 01/31/25 05:50 01/31/25 05:50 Labs: Laboratory Results - last 24 hr 01/30/25 11:19: POC Glucose 201 H 01/30/25 16:31: POC Glucose 189 H 01/30/25 21:18: POC Glucose 203 H 01/31/25 05:50: WBC 12.1 H, RBC 4.22 L, Hgb 12.8 L, Hct 39.1 L, MCV 92.7, MCH 30.3, MCHC 32.7, RDW Std Deviation 43.8, RDW Coeff of Hossein 12.8, Plt Count 200, MPV 10.5, Immature Gran % (Auto) 0.500, Neut % (Auto) 69.5, Lymph % (Auto) 20.4, [place] % (Auto) 7.7, Eos % (Auto) 1.7, Baso % (Auto) 0.2, Absolute Neuts (auto) 8.4 H, Absolute Lymphs (auto) 2.47, Nucleated RBC % 0, Sodium 135, Potassium 4.3, Chloride 103, Carbon Dioxide 21.0, Anion Gap 11, BUN 13, Creatinine 0.85, Estim Creat Clear Calc 73.30, Est GFR (MDRD) Non-Af 84, BUN/Creatinine Ratio 15.7, Glucose 220 H, Calcium 8.3 01/31/25 06:33: POC Glucose 221 H Micro: Microbiology 01/29/25 21:55 Urine, Clean Catch 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 - 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 Physical Exam Narrative General: Alert, Oriented x3, Cooperative, No apparent distress HEENT: Atraumatic, PERRLA, EOMI, Normocephalic Oral: Moist Mucosa Neck: Supple, No JVD Lungs: Diminished, Normal air movement, No rhonchi, No wheeze, No rales Cardiovascular: Regular rate, Regular Rhythm, Normal S1, Normal S2, No murmurs Abdomen: Soft, Non Tender, Non-Distended, No Hepato-splenomegaly Extremities: No edema, Capillary Refill Less than 3 Seconds Skin: No rashes, No breakdown Musculoskeletal: No Tenderness to Palpation of Joints or Extremities Neurological: No focal neurological deficits, moves all extremities Psych/Mental Status: Normal Affect, Appropriate Assessment & Plan Assessment/Plan (1) Acute lower gastrointestinal bleeding: (2) Diabetes mellitus: PLAN: Plan 1. Bright red blood per rectum without anemia/GERD ? Plan for outpatient GI follow-up unless hemoglobin drops further ? Can reinstitute diet ? Continue with PPI 2. UTI with perinephric fat stranding on CT scan ? UA is consistent for a UTI ? Urine cultures with gram-negative rods ? Continue with Rocephin 3. Essential HTN/HLD/history of CVA ? Continue with his home blood pressure medications ? Continue with his home cholesterol medications ? Will monitor make adjustments as necessary 4. DM2 ? Sliding scale insulin ? Accu-Cheks ? Will monitor make adjustments as necessary 5. BPH with obstruction ? Stable ? Continue with home medications DVT: SCDs Charges/Coding Visit Charges Inpatient E&M: 79968 Subs Hosp L2
--- NOTE | 2025-01-31 12:43 | CASEMGMT ---
Green sheet on chart with transport sheet for [facility] for pt to be transferred home and to notify [facility] for resumption of services.
[2025-01-31 14:23] VITALS: BP 101/49; PULSE 86; RESP 16; TEMP 37; O2SAT 100
[2025-01-31 21:15] VITALS: BP 145/69; PULSE 78; RESP 16; TEMP 36.6; O2SAT 94
[2025-01-31 21:28] VITALS: PULSE 78
[2025-02-01 03:29] VITALS: BP 125/70; PULSE 75; RESP 16; TEMP 36.6; O2SAT 92
[2025-02-01 05:45] LABS: Hematocrit 39.7 % (40-54); Hemoglobin 12.9 g/dL (13.0-16.5); Immature Granulocytes Count 0.040 X10^3/uL (0.0-0.0); Mean Corp Hgb Conc 32.5 g/dL (32-36); Mean Corpuscular Volume 92.3 fL (80-94); Mean Platelet Vol. 10.2 fl (6.2-12.0); NRBC Flagged by Analyzer 0 % (0-5); Platelet Count 196 K/mm3 (150-450); RBC Distribution Width CV 12.8 % (11.6-14.6); RBC Distribution Width SD 43.1 fl (35.1-43.9); Red Blood Count 4.30 M/mm3 (4.6-6.2); White Blood Count 11.8 K/mm3 (4.4-11.0)
[2025-02-01 06:24] LABS: Anion Gap 10 (5-15); BUN 15 mg/dL (4-19); BUN/Creat Ratio 18.8 RATIO (10-20); Calcium,Total 8.4 mg/dL (7.6-11.0); Carbon Dioxide 22.9 mmol/L (21.0-32.0); Chloride 104 mmol/L (98-108); Estimated Creatinine Clearance 77.88 ml/min (50-250); Glucose 168 mg/dL (70-99); Potassium 4.3 mmol/L (3.3-5.1)
[2025-02-01 08:14] VITALS: BP 155/78; PULSE 80; RESP 18; TEMP 36.4; O2SAT 95
[2025-02-01 08:17] VITALS: PULSE 80
--- NOTE | 2025-02-01 09:04 | DCINST_ITS ---
Discharge Instructions DC O2, CPAP, BIPAP needs Home O2 Discharge instructions: No Dressing / Incision Discharge Activity: Return to Normal Activity Dressing / Incision Call your doctor if you observe: Fever of 101 or Higher, Shortness of breath, Dizziness, Fainting spells, Swelling in the ankles, Chest pain and Increased palpitations (irregular heartbeat) Follow Up Care Test Results: Test results from this visit will be discussed in further detail at your follow- up appointment, if applicable. Discharge Plan Admission Admit Date/Time: 01/29/25 17:32 Attending Provider: Prateek Wilson Primary Care Provider: Shavon Morejon Consulting Providers: Liz Lopez Instructions Additional Instructions / Restrictions: Follow-up with your PCP in 3 to 5 days to monitor your hemoglobin is been stable here in the hospital however if you do have a recurrence of bright red blood per rectum would recommend outpatient follow-up with gastroenterology Discharge Orders/Prescriptions Prescriptions: New nitrofurantoin monohyd/m-cryst 100 mg Capsule 100 mg PO BID 7 Days Qty: 14 0RF Continued metformin 500 MG tablet 500 mg PO DAILY Patient Comments: DIABETIC MED atorvastatin 20 mg Tablet 20 mg PO QHS Qty: 30 0RF lisinopril 20 mg Tablet 20 mg PO BID Qty: 0 0RF tamsulosin 0.4 mg capsule 0.4 mg PO .daily omeprazole 20 mg capsule,delayed release(DR/EC) 20 mg PO DAILY spironolactone 25 mg tablet 25 mg PO DAILY metoprolol tartrate 50 mg tablet 50 mg PO BID metformin 1,000 mg tablet 1,000 mg PO 1700 Referrals / Follow Up: Shavon Morejon DO [Primary Care Provider, Family Practice] - Within 1 Week Disposition Disposition (needs filled in before D/C Order can be placed): Home, Self Care
[2025-02-01] MEDS: Pantoprazole Sodium 40 MG in 0.9% Normal Saline (100mL MB+) 100 ML 300 MG IV ×2 (11:05→22:07)
--- NOTE | 2025-02-01 11:07 | PN.HOSP_ITS ---
Subjective Subjective Hemoglobin is stabilized but he continues to have mild abdominal pain that is more suprapubic consistent with his UTI he does not feel comfortable going home today Objective Data Objective Data Vital Signs: Vital Signs Temp Pulse Resp BP Pulse Ox O2 Del Method 97.6 F L 80 18 155/78 H 95 Room Air 02/01/25 08:14 02/01/25 08:17 02/01/25 08:14 02/01/25 08:14 02/01/25 08:14 02/01/25 08:14 Oxygen Delivery Method Room Air Weight: 225 lb 1.471 oz Body Mass Index (BMI) 32.3 Intake & Output: Intake and Output for Last 24 Hours 01/31/25 02/01/25 02/02/25 03:59 03:59 03:59 Intake Total 1013.33 / 1013.33 1350 / 1350 100 / 100 Output Total 300 / 350 750 / 750 300 / 300 Balance 713.33 / 663.33 600 / 600 -200 / -200 Lab / Micro Data 02/01/25 05:31 02/01/25 05:31 Labs: Laboratory Results - last 24 hr 01/31/25 11:45: POC Glucose 181 H 01/31/25 16:06: POC Glucose 212 H 01/31/25 21:27: POC Glucose 187 H 02/01/25 05:31: WBC 11.8 H, RBC 4.30 L, Hgb 12.9 L, Hct 39.7 L, MCV 92.3, MCH 30.0, MCHC 32.5, RDW Std Deviation 43.1, RDW Coeff of Hossein 12.8, Plt Count 196, MPV 10.2, Immature Gran % (Auto) 0.300, Neut % (Auto) 66.9, Lymph % (Auto) 23.2, [place] % (Auto) 7.4, Eos % (Auto) 1.9, Baso % (Auto) 0.3, Absolute Neuts (auto) 7.9 H, Absolute Lymphs (auto) 2.74, Nucleated RBC % 0, Sodium 136, Potassium 4.3, Chloride 104, Carbon Dioxide 22.9, Anion Gap 10, BUN 15, Creatinine 0.78, Estim Creat Clear Calc 77.88, Est GFR (MDRD) Non-Af 86, BUN/Creatinine Ratio 18.8, Glucose 168 H, Calcium 8.4 02/01/25 06:47: POC Glucose 165 H Micro: Microbiology 01/29/25 21:55 Urine, Clean Catch 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 - Preliminary Escherichia coli Physical Exam Narrative General: Alert, Oriented x3, Cooperative, No apparent distress HEENT: Atraumatic, PERRLA, EOMI, Normocephalic Oral: Moist Mucosa Neck: Supple, No JVD Lungs: Diminished, Normal air movement, No rhonchi, No wheeze, No rales Cardiovascular: Regular rate, Regular Rhythm, Normal S1, Normal S2, No murmurs Abdomen: Soft, Non Tender, Non-Distended, No Hepato-splenomegaly Extremities: No edema, Capillary Refill Less than 3 Seconds Skin: No rashes, No breakdown Musculoskeletal: No Tenderness to Palpation of Joints or Extremities Neurological: No focal neurological deficits, moves all extremities Psych/Mental Status: Normal Affect, Appropriate Assessment & Plan Assessment/Plan (1) Acute lower gastrointestinal bleeding: (2) Diabetes mellitus: PLAN: Plan 1. Bright red blood per rectum without anemia/GERD ? Plan for outpatient GI follow-up unless hemoglobin drops further ? Can reinstitute diet ? Continue with PPI ? Hemoglobin is stabilized and bleeding has discontinued 2. UTI with ESBL E. coli and perinephric fat stranding on CT scan ? UA is consistent for a UTI ? Urine culture with ESBL E. coli sensitive to Macrobid ? Will start him on p.o. Macrobid 3. Essential HTN/HLD/history of CVA ? Continue with his home blood pressure medications ? Continue with his home cholesterol medications ? Will monitor make adjustments as necessary 4. DM2 ? Sliding scale insulin ? Accu-Cheks ? Will monitor make adjustments as necessary 5. BPH with obstruction ? Stable ? Continue with home medications DVT: SCDs Charges/Coding Visit Charges Inpatient E&M: 74432 Subs Hosp L2
[2025-02-01 14:49] VITALS: BP 132/49; PULSE 70; RESP 18; TEMP 36.4; O2SAT 94
[2025-02-01 22:00] VITALS: BP 144/77; PULSE 87; RESP 16; TEMP 36.8; O2SAT 95
[2025-02-01] MEDS: 0.9% Saline Lock 10 ML Syringe IV (22:08)
[2025-02-01 22:14] VITALS: BP 144/77; PULSE 87
[2025-02-02 02:44] VITALS: BP 135/69; PULSE 80; RESP 16; TEMP 36.6; O2SAT 95
[2025-02-02 08:14] VITALS: BP 155/64; PULSE 85; RESP 18; TEMP 36.6; O2SAT 97
[2025-02-02 08:23] VITALS: PULSE 85
[2025-02-02] MEDS: Pantoprazole Sodium 40 MG in 0.9% Normal Saline (100mL MB+) 100 ML 300 MG IV (08:27)
--- NOTE | 2025-02-02 10:17 | DS.PCM_ITS ---
Providers Date of Admission: 01/29/25 Primary Care Physician: Dr. Shavon Morejon, DO Consultations 01/30/25 06:44 Consult: Onc/Wound/thermal technician Routine Comment: Reason for Consult:: bilateral buttocks pressure ulcer Reason For Visit: CONCERN FOR GIB Diagnosis Discharge Diagnosis (1) Acute lower gastrointestinal bleeding: Status: Acute Code(s): K92.2 - Gastrointestinal hemorrhage, unspecified (2) Diabetes mellitus: Status: Acute Code(s): E11.9 - Type 2 diabetes mellitus without complications Medications at Discharge Home Medications metformin 500 mg tablet 500 mg PO DAILY diabetes 07/13/16 atorvastatin 20 mg tablet 20 mg PO QHS #30 tabs 10/14/21 lisinopril 20 mg tablet 20 mg PO BID #0 tabs 10/14/21 metformin 1,000 mg tablet 1,000 mg PO 1700 01/29/25 metoprolol tartrate 50 mg tablet 50 mg PO BID 01/29/25 omeprazole 20 mg capsule,delayed release 20 mg PO DAILY gastric reflux 01/29/25 spironolactone 25 mg tablet 25 mg PO DAILY BP 01/29/25 tamsulosin 0.4 mg capsule 0.4 mg PO .daily enlarged prostate 01/29/25 nitrofurantoin monohydrate/macrocrystals 100 mg capsule 100 mg PO BID 7 days #14 caps 02/01/25 Hospital Course Operations None Procedures None Summary of Care Provided Minutes Spent on Discharge: 33 Hospital Course: Per HPI: NNAMDI TRUJILLO, is a 84-year-old male history of GERD, diabetes, BPH presented to [facility] ED 01/29/2025 with rectal bleeding began today. Notes that he had a bowel movement that was bloody and felt like it filled the toilet and has been having some diffuse abdominal pain that has been waxing waning over the past week that is dull in nature with nothing making it better nothing making it worse. Also has had some nausea and vomiting without any hematemesis or coffee-ground emesis. In the ED temp 98.3, heart rate 84, blood pressure 155/75, respiratory rate 22 pulse ox 94% on room air. CBC with white count 11.7, hemoglobin 14.7, CMP only notable for glucose of 179 otherwise within normal limits, lipase 28. CT abdomen pelvis with perinephric fat stranding and recommended correlation with urinalysis. No evidence of diverticulitis or other acute process. Given elevated [place] score and episode of bright red blood that filled the toilet GI was contacted and agreeable to seeing patient in consult. Hospitalist contacted for admission. Patient evaluated bedside. He reports history as above with intermittent abdominal pain more so in center of his abdomen over the past week, though rectal bleeding was large-volume bright red blood earlier today, has never happened before and has not happened again since, intermittently nauseous but feels better after Zofran. No bladder concerns, no fevers. 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 Has had some cough over the past month and also reports his throat has been sore for the past week, unclear if this is from the cough or otherwise. Hospital Course: 1. UTI with ESBL E. coli with minimal perinephric fat stranding on CT scan/BRBPR without anemia?85-year-old male presented to the hospital with generalized abdominal pain. He was having some bright red blood per rectum however hemoglobin remained stable and was of very little significance. He does have a history of GERD and was continued on his PPI. He was found to have a UTI that did come back with ESBL E. coli. He had been on Rocephin however this is not clinically indicated so he was transition to p.o. Macrobid 100 mg p.o. twice daily for 7 days. I was going to discharge him yesterday however he requested to stay 1 more day due to his abdominal pain. His abdominal pain is likely related to his cystitis as it is low pelvic pain and not diffuse. Will plan for discharge today. I discussed with him the plan for discharge and he expressed understanding of the risk and benefits of going home and is okay with going home today. I do recommend follow-up with his PCP as well as gastroenterology if he continues to have any bright red blood per rectum. 2. 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 His home medications were continued where appropriate Physical Exam Narrative General: Alert, Oriented x3, Cooperative, No apparent distress HEENT: Atraumatic, PERRLA, EOMI, Normocephalic Oral: Moist Mucosa Neck: Supple, No JVD Lungs: Diminished, Normal air movement, No rhonchi, No wheeze, No rales Cardiovascular: Regular rate, Regular Rhythm, Normal S1, Normal S2, No murmurs Abdomen: Soft, Non Tender, Non-Distended, No Hepato-splenomegaly Extremities: No edema, Capillary Refill Less than 3 Seconds Skin: No rashes, No breakdown Musculoskeletal: No Tenderness to Palpation of Joints or Extremities Neurological: No focal neurological deficits, moves all extremities Psych/Mental Status: Normal Affect, Appropriate Weight / BMI Weight Weight: 225 lb 1.471 oz Body Mass Index (BMI) 32.3 ABG / Lab / Microbiology Data 02/01/25 05:31 02/01/25 05:31 Laboratory: Laboratory Results - last 24 hr 02/01/25 11:03: POC Glucose 239 H 02/01/25 16:39: POC Glucose 230 H 02/01/25 21:58: POC Glucose 227 H 02/02/25 06:44: POC Glucose 203 H Microbiology: Microbiology 01/29/25 21:55 Urine, Clean Catch 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 - Final ESBL Escherichia coli D/C Instructions Call your doctor if you observe: Fever of 101 or Higher, Shortness of breath, Dizziness, Fainting spells, Swelling in the ankles, Chest pain and Increased palpitations (irregular heartbeat) DC O2, CPAP, BIPAP Needs Home O2 Discharge instructions: No Meaningful Use Info Meaningful Use Meaningful Use Diagnoses (Choose all that apply): None applicable Discharge Plan Admission Admit Date/Time: 01/29/25 17:32 Attending Provider: Prateek Wilson Primary Care Provider: Shavon Morejon Consulting Providers: Liz Lopez Instructions Additional Instructions / Restrictions: Follow-up with your PCP in 3 to 5 days to monitor your hemoglobin is been stable here in the hospital however if you do have a recurrence of bright red blood per rectum would recommend outpatient follow-up with gastroenterology Discharge Orders/Prescriptions Prescriptions: New nitrofurantoin monohyd/m-cryst 100 mg Capsule 100 mg PO BID 7 Days Qty: 14 0RF Continued metformin 500 MG tablet 500 mg PO DAILY Patient Comments: DIABETIC MED atorvastatin 20 mg Tablet 20 mg PO QHS Qty: 30 0RF lisinopril 20 mg Tablet 20 mg PO BID Qty: 0 0RF tamsulosin 0.4 mg capsule 0.4 mg PO .daily omeprazole 20 mg capsule,delayed release(DR/EC) 20 mg PO DAILY spironolactone 25 mg tablet 25 mg PO DAILY metoprolol tartrate 50 mg tablet 50 mg PO BID metformin 1,000 mg tablet 1,000 mg PO 1700 Referrals / Follow Up: Shavon Morejon DO [Primary Care Provider, [facility]] - Within 1 Week Disposition Disposition (needs filled in before D/C Order can be placed): Home, Self Care Charges/Coding Visit Charges Inpatient E&M: 48563 Disch Hosp >30min
--- NOTE | 2025-02-02 10:37 | NURSING ---
Called pt daughter and informed her that the pt will be leaving today to come home. She said that she will be there till 12:30 and thenher mom will be home from [facility]. Pt will be picked up at 11:30 by ambulance services.
== END 2025-02-02 11:18 | disposition home health service (06) | DRG 378 ==
LOC: ED 17:11 → MS3 17:38
PROVIDERS: Admitting Provider Internal Medicine; Emergency Provider Emergency Medicine; PCP Family Medicine; Visit Provider Family Medicine
DX: K92.2 Gastrointestinal hemorrhage, unspecified (principal); N13.8 Other obstructive and reflux uropathy; E11.9 Type 2 diabetes mellitus without complications; I10 Essential (primary) hypertension; E78.5 Hyperlipidemia, unspecified; B96.20 Unspecified Escherichia coli [E. coli] as the cause of diseases classified elsewhere; K21.9 Gastro-esophageal reflux disease without esophagitis; Z87.891 Personal history of nicotine dependence; N40.1 Benign prostatic hyperplasia with lower urinary tract symptoms; Z86.73 Personal history of transient ischemic attack (TIA), and cerebral infarction without residual deficits; Z79.899 Other long term (current) drug therapy; Z85.828 Personal history of other malignant neoplasm of skin; Z96.641 Presence of right artificial hip joint; Z96.651 Presence of right artificial knee joint; Z90.49 Acquired absence of other specified parts of digestive tract; R93.5 Abnormal findings on diagnostic imaging of other abdominal regions, including retroperitoneum; N30.90 Cystitis, unspecified without hematuria; Z79.84 Long term (current) use of oral hypoglycemic drugs
CPT/HCPCS: 36415; 74177; 80048; 80053; 81001; 82962; 83690; 85014; 85018; 85025; 87077; 87086; 87088; 87186; 99285; Q9967; A4216; J2405